=== PATIENT | female | born 1965 | race African-American/Black ===

== ENCOUNTER → 2016-04-07 | Emergency (ER) | payer MEDICAID, OTHER ==
[~2016-04-07] VITALS: Ht 167.6 cm; Wt 97.5 kg
[~2016-04-07] MED LIST: AMOXICILLIN500 MG ORAL; ANTIVERT25 MG ORAL; AUGMENTIN TAB875 MG ORAL; BIRTH CONTROL; CHLORPHENIRAMINE4 M1 PO; CORTISPORIN EAR10 ML OTIC; FLAGYL500 MG PO; FLOXIN OTIC10 DROP OT; KEFLEX500 MG ORAL; KENALOG 0.1% CR15 GM APPLIC; KENALOG 0.1% CR15 GM TOPIC; KENALOG 0.5% CR15 GM APPLIC; METROGEL-VAGINA70 G1 VAGIN; METRONIDAZOLE500 MG ORAL; METRONIDAZOLE500 MG PO; NKM; PREDNISONE50 MG ORAL; PROMETH-CODEIN 65 ML PO; TRIAMCINOLONE A15 G1 TP; VIBRAMYCIN100 MG PO
[2016-04-07 07:50] VITALS: BP 157/94
--- NOTE | 2016-04-07 08:02 | Emergency Room Report ---
History of Present Illness General Chief Complaint: Flu Like Symptoms Source: Patient Present Illness HPI The patient presents with 4 days of upper respiratory symptoms. She's had congestion, sneezing, sore throat, ear pain. She has a slight cough also. It' s nonproductive. She has a slight headache also. She's been taking over-the- counter medications. He been helping somewhat. She denies a flu shot this year. She denies any nausea vomiting diarrhea. She has no dysuria also. There 's been purulent material from her nose. 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 Social History: Denies: smoking Social History Narrative Brought by her daughter - works Home [employer] Last Menstrual Period: 03/20/16 Now: No Reviewed Nursing Documentation: PMH: Agreed, PSxH: Agreed Nursing Documentation-PMH Past Medical History: No Stated History Hx Cardiac Problems: No - ECZEMA Review of Systems Constitutional: Reports: see HPI ENT: Reports: see HPI Respiratory: Reports: see HPI Gastrointestinal: Reports: see HPI Genitourinary: Reports: see HPI Musculoskeletal: Reports: see HPI Skin: Denies: rash Neurological: Reports: see HPI Physical Exam Vital Signs Date Time Temp Pulse Resp B/P Pulse Ox O2 Delivery O2 Flow Rate FiO2 04/07/16 07:47 98.4 74 20 157/94 98 Room Air Sp02 EP Interpretation: reviewed, normal General Appearance: well appearing, no apparent distress Head: normocephalic, atraumatic Eyes: bilateral eye PERRL, bilateral eye other ENT: hearing grossly normal, normal voice, TMs + canals normal, moist mucus membranes, pharyngeal erythema Neck: full range of motion, supple Respiratory: lungs clear, normal breath sounds, no respiratory distress, speaking full sentences Cardiovascular #1: regular rate, rhythm Cardiovascular #2: 2+ radial (L) Gastrointestinal: normal inspection, overweight Musculoskeletal: normal inspection, gait/station normal, normal range of motion , no calf tenderness Neurologic: alert - Grosssly normal neurologic exam, normal gait Psychiatric: mood/affect normal Skin: no rash Medical Decision Making Diagnostic Impression: Primary Impression: Sinusitis Qualified Codes: J01.90 - Acute sinusitis, unspecified ER Course The patient presents with upper respiratory symptoms. She did not receive a flu shot. We will be checking influenza swab. She will also be treated symptomatically at this time. She is nontoxic. Significant nasal congestion and discharge. Influenza negative. Patient stable for outpatient observation and treatment. (She had stated allergy to codiene, however then reports that she had gum swelling after tooth extraction while taking codiene.) Microbiology Date/Time Source Procedure Growth Status 04/07/16 08:00 Nose Influenza Types A,B Antigen (FLOR) - Final Complete Last Vital Signs Date Time Temp Pulse Resp B/P Pulse Ox O2 Delivery O2 Flow Rate FiO2 04/07/16 09:10 98.4 74 20 157/94 98 Room Air Status: improved Disposition: HOME, SELF-CARE Condition: Stable Scripts Chlorpheniramine Maleate (Chlorpheniramine Maleate) 4 Mg Tablet 4 MG PO Q6HR Y for congestion, #12 TAB Prov: Stevenson Delgadillo M.D. 04/07/16 Promethazine HCl/Codeine (Prometh-Codein 6.25-10 mg/5 ml) 5 Ml Syrup 5 ML PO Q6HR Y for For Cough, #60 ML Prov: Stevenson Delgadillo M.D. 04/07/16 Amoxicillin* (AMOXIL*) 500 Mg Capsule 500 MG ORAL EVERY 8 HOURS, #21 CAP Prov: Stevenson Delgadillo M.D. 04/07/16 Stevenson Delgadillo M.D. Apr 07, 2016 08:02
[2016-04-07 09:10] VITALS: BP 157/94
== END | disposition home or self-care (01) ==
LOC: EMR 08:08
DX: J32.9 Chronic sinusitis, unspecified (principal); R09.81 Nasal congestion; R06.7 Sneezing; H92.09 Otalgia, unspecified ear
CPT/HCPCS: 86710; 99282

== ENCOUNTER 2016-07-22 07:18 | Emergency (ER) | payer MEDICAID ==
[~2016-07-22] VITALS: Ht 167.6 cm; Wt 113.4 kg
[~2016-07-22 07:18] MED LIST changes: -METRONIDAZOLE500 MG ORAL
[2016-07-22] MEDS ORDERED: LR 1000ml 1,000 ML IV STA (07:44)
[2016-07-22 08:20] LABS: BASOPHILS % (AUTO) 1.2 % (0.0-2.0); EOSINOPHILS % (AUTO) 2.9 % (0.0-3.0); LYMPHOCYTES % (AUTO) 32.8 % (20.0-45.0); MEAN CORPUSCULAR HEMOGLOBIN 35.1 PG (27.0-31.0); MEAN CORPUSCULAR HGB CONC 32.2 G/DL (32.0-36.0); MEAN CORPUSCULAR VOLUME 109 FL (80-99); MEAN PLATELET VOLUME 8.1 FL (6.5-10.1); MONOCYTES % (AUTO) 4.7 % (1.0-10.0); NEUTROPHILS % (AUTO) 58.4 % (45.0-75.0); PLATELET COUNT 253 K/UL (150-450); RED BLOOD COUNT 3.49 M/UL (4.20-5.40); RED CELL DISTRIBUTION WIDTH 12.1 % (11.6-14.8); WHITE BLOOD COUNT 8.5 K/UL (4.8-10.8)
--- NOTE | 2016-07-22 08:20 | Emergency Room Report ---
History of Present Illness General Chief Complaint: Dizziness Source: Patient Present Illness HPI 50 YO F with 1 week of "dizziness." She actually means weakness. Denies room spinning, unsteadiness on her feet. By dizziness, means "Im tired all the time. " C/o lower abd and back pain as well. Didnt have period for 2 months, had heavy period last week. Denies chance of . Denies vaginal bleeding, dysuria, polyuria. Denies nausea/vomiting, diarrhea. Denies chest pain, SOB, headache. Allergies: Coded Allergies: No Known Allergies (Unverified , 04/07/16) Patient History Past Medical History: none Past Surgical History: other - Tubal ligation Pertinent Family History: none Social History: Denies: alcohol use, drug use, smoking Last Menstrual Period: last week Now: No Immunizations: UTD Reviewed Nursing Documentation: PMH: Agreed, PSxH: Agreed Nursing Documentation-PMH Past Medical History: No History, Except For Review of Systems All Other Systems: negative except mentioned in HPI Physical Exam Vital Signs Date Time Temp Pulse Resp B/P Pulse Ox O2 Delivery O2 Flow Rate FiO2 07/22/16 07:28 98.2 71 18 142/83 98 Room Air Sp02 EP Interpretation: reviewed, abnormal General Appearance: normal inspection, well appearing, no apparent distress, alert, GCS 15, non-toxic, obese Head: normocephalic, atraumatic Eyes: bilateral eye EOMI, bilateral eye PERRL ENT: normal ENT inspection, hearing grossly normal, normal voice Neck: normal inspection, full range of motion, supple, no bony tend Respiratory: normal inspection, lungs clear, normal breath sounds, no respiratory distress, no retraction, no wheezing Cardiovascular #1: regular rate, rhythm, no edema Gastrointestinal: normal inspection, normal bowel sounds, non tender, soft, no guarding, no hernia Genitourinary: no CVA tenderness Musculoskeletal: normal inspection, back normal, normal range of motion, Kit' s Sign negative Neurologic: normal inspection, alert, oriented x3, responsive, quality specialist III-XII nml as tested, motor strength/tone normal, speech normal Psychiatric: normal inspection, judgement/insight normal, mood/affect normal Skin: normal inspection, normal color, no rash Lymphatic: normal inspection Medical Decision Making Diagnostic Impression: Primary Impression: Weakness ER Course Labs: H&H stable. No leuks. UA + for trich. ECG is NSR. Troponin 0. Weakness - Unknown cause, possible bernardo-menopausal - H&H stable, unlikely fibroids Treated for Trich in ED. Rx for partner provided EKG Diagnostic Results Rate: normal Rhythm: NSR ST Segments: other Rhythm Strip Diag. Results EP Interpretation: yes Rate: 65 Rhythm: NSR, no PVC's, no ectopy Last Vital Signs Date Time Temp Pulse Resp B/P Pulse Ox O2 Delivery O2 Flow Rate FiO2 07/22/16 07:28 98.2 71 18 142/83 98 Room Air Status: improved Disposition: HOME, SELF-CARE Scripts Triamcinolone Acet (Triamcinolone Acetonide) 15 Gm Cream..g. 15 GM APPLIC TID for 30 Days, GM Prov: SOLOMON GODOY M.D. 07/22/16 Metronidazole* (FLAGYL*) 500 Mg Tablet 2000 MG ORAL ONCE, #4 TAB Prov: SOLOMON GODOY M.D. 07/22/16 Referrals: [facility]ERR[facility] (PCP) SOLOMON GODOY M.D. Jul 22, 2016 08:20
[2016-07-22 08:32] LABS: TROPONIN I < 0.30 ng/mL (<=0.30)
[2016-07-22 08:33] LABS: ALANINE AMINOTRANSFERASE 13 U/L (3-33); ALBUMIN/GLOBULIN RATIO 1.1 (1.0-2.7); ANION GAP 14 (5-15); ASPARTATE AMINO TRANSFERASE 26 U/L (5-40); CALCIUM 8.8 mg/dL (8.6-10.2); CARBON DIOXIDE 24 mEQ/L (20-30); CHLORIDE 96 mEQ/L (98-107); CREATININE 0.9 mg/dL (0.5-0.9); GLOMERULAR FILTRATION RATE > 60 mL/min (>60); HEMOLYSIS 146; POTASSIUM 5.1 mEQ/L (3.4-4.9); SODIUM 134 mEQ/L (135-145); TOTAL PROTEIN 7.4 g/dL (6.6-8.7)
[2016-07-22 08:44] LABS: CKMB < 1.5 ng/mL (< 3.8)
[2016-07-22 08:52] VITALS: BP 126/71
[2016-07-22 09:12] LABS: APPEARANCE,URINE SLIGHTLY CLOUDY; KETONES,URINE NEGATIVE (NEGATIVE); LEUKOCYTE ESTERASE ,URINE 3+ (NEGATIVE); NITRITE,URINE NEGATIVE (NEGATIVE); PH,URINE 5 (4.5-8.0); PROTEIN,URINE 1+ (NEGATIVE); UROBILINOGEN,URINE NORMAL MG/DL (0.0-1.0)
[2016-07-22 09:27] LABS: BACTERIA,URINE FEW /HPF; SQUAMOUS EPITHELIAL CELL,UR MODERATE /LPF (NONE/OCC); TRICHOMONAS,URINE FEW /HPF
[2016-07-22] MEDS ORDERED: METRONIDAZOLE500 MG ORAL (10:23)
[2016-07-22] MEDS ORDERED: metroNIDAZOLE 500mg tab ORAL ONE (10:30)
[2016-07-22] MEDS ORDERED: KENALOG 0.5% CR15 GM APPLIC (10:48)
[2016-07-22 10:54] VITALS: BP 144/82
--- NOTE | 2016-07-23 18:36 | Cardiology Report ---
APPROVED REPORT EKG Measurement Heart [id number] Normal sinus rhythm Possible Left atrial enlargement Septal infarct, age undetermined Abnormal ECG
== END 2016-07-22 10:56 | disposition home or self-care (01) ==
LOC: EMR 08:04
DX: R53.1 Weakness (principal)
CPT/HCPCS: 36415; 80053; 81003; 81025; 82550; 82553; 84484; 85025; 93005; 96374; 99284; J7120

== ENCOUNTER 2016-12-05 05:25 | Emergency (ER) | payer MEDICAID ==
[~2016-12-05] VITALS: Ht 167.6 cm; Wt 104.3 kg
[~2016-12-05 05:25] MED LIST changes: +METRONIDAZOLE500 MG ORAL
[2016-12-05 06:00] VITALS: BP 126/68
--- NOTE | 2016-12-05 06:11 | Emergency Room Report ---
History of Present Illness General Chief Complaint: Female Urogenital Problems Source: Patient, Medical Record Present Illness HPI Is a 51-year-old female with no significant past medical history. She's been here numerous times for vaginal discharge and has trichomonal infection. She will be treated and does not know if her partner was also treated. She has the same partner since then. She presents with chief complaint of his discharge his been ongoing for last for 5 days. Initially treated herself with one-day Monistat and it did get better. Now back to having discharge. Discharge is yellowish. Itching. No urinary frequency. No hematuria. Allergies: Coded Allergies: No Known Allergies (Unverified , 04/07/16) Patient History Past Medical History: see triage record, old chart reviewed Past Surgical History: other Pertinent Family History: none Social History: Denies: smoking Last Menstrual Period: 11/22/16 Now: No Immunizations: other Reviewed Nursing Documentation: PMH: Agreed, PSxH: Agreed Review of Systems Eye: Denies: eye pain, blurred vision ENT: Denies: ear pain, nose congestion, throat swelling Respiratory: Denies: cough, shortness of breath Cardiovascular: Denies: chest pain, palpitations Gastrointestinal: Denies: abdominal pain, diarrhea, nausea, vomiting Genitourinary: Reports: discharge Musculoskeletal: Denies: back pain, joint pain Skin: Denies: rash Neurological: Denies: headache, numbness Endocrine: Denies: increased thirst, increased urine Hematologic/Lymphatic: Denies: easy bruising All Other Systems: negative except mentioned in HPI Physical Exam Vital Signs Date Time Temp Pulse Resp B/P (MAP) Pulse Ox O2 Delivery O2 Flow Rate FiO2 12/05/16 05:41 97.9 72 18 147/87 98 Room Air vitals normal Sp02 EP Interpretation: reviewed, normal General Appearance: well appearing, no apparent distress, alert, obese Head: normocephalic, atraumatic Eyes: bilateral eye PERRL, bilateral eye EOMI ENT: hearing grossly normal, normal pharynx Neck: full range of motion, supple, no meningismus Respiratory: chest non-tender, lungs clear, normal breath sounds Cardiovascular #1: regular rate, rhythm, no murmur Gastrointestinal: normal bowel sounds, non tender, no mass, no organomegaly, no bruit, non-distended Genitourinary: other - Pelvic exam done with female nurse grab jack worker. There is yellowish discharge. No cervical motion tenderness. No adnexal tenderness. External exam normal. Musculoskeletal: back normal, gait/station normal, normal range of motion Neurologic: alert, oriented x3 Psychiatric: mood/affect normal Skin: warm/dry Medical Decision Making Diagnostic Impression: Primary Impression: Bacterial vaginosis ER Course Patient presents with vaginal discharge consistent of bacterial vaginosis. No evidence of Trichomonas. We'll discharge home. Last Vital Signs Date Time Temp Pulse Resp B/P (MAP) Pulse Ox O2 Delivery O2 Flow Rate FiO2 12/05/16 05:41 97.9 72 18 147/87 98 Room Air Status: improved Disposition: HOME, SELF-CARE Scripts Metronidazole* (FLAGYL*) 500 Mg Tablet 500 MG ORAL BID, #14 TAB Prov: BETH MYLES M.D. 12/05/16 Referrals: [facility],REFERRING (PCP) Additional Instructions: Followup with your DrElan in 7 days. For alcohol with your antibiotics. Return if symptom worsen. BETH MYLES M.D. Dec 05, 2016 06:11
[2016-12-05 06:13] LABS: APPEARANCE,URINE CLEAR; KETONES,URINE NEGATIVE (NEGATIVE); LEUKOCYTE ESTERASE ,URINE 3+ (NEGATIVE); NITRITE,URINE NEGATIVE (NEGATIVE); PH,URINE 5 (4.5-8.0); PROTEIN,URINE 1+ (NEGATIVE); UROBILINOGEN,URINE NORMAL MG/DL (0.0-1.0)
[2016-12-05] MEDS ORDERED: METRONIDAZOLE500 MG ORAL (06:23)
[2016-12-05 06:25] VITALS: BP 130/71
[2016-12-05 06:30] VITALS: BP 130/71
[2016-12-05 06:35] LABS: BACTERIA,URINE MODERATE /HPF; SQUAMOUS EPITHELIAL CELL,UR MODERATE /LPF (NONE/OCC); WBC,URINE 40-60 /HPF (0 - 2)
== END 2016-12-05 06:30 | disposition home or self-care (01) ==
LOC: EMR 05:40
DX: N76.0 Acute vaginitis (principal); N89.8 Other specified noninflammatory disorders of vagina
CPT/HCPCS: 81003; 87086; 87181; 87210; 99283

== ENCOUNTER 2017-07-10 18:52 | Emergency (ER) | payer MEDICAID ==
[~2017-07-10] VITALS: Ht 167.6 cm; Wt 122.5 kg
[2017-07-10 19:25] VITALS: BP 120/74
[2017-07-10 19:30] VITALS: BP 130/85
[2017-07-10 19:35] VITALS: BP 134/82
--- NOTE | 2017-07-10 19:56 | Emergency Room Report ---
History of Present Illness General Chief Complaint: Chest Pain Source: Patient, Medical Record Present Illness HPI Patient's 51-year-old female presented after increased chest discomfort. Patient reported having sharp pain to the left side of her chest. This resolved spontaneously. She reported having eaten a burrito with spicy sauce immediately prior to having onset of pain. She denied any vomiting. She denies any shortness of breath. She reports having some itching to the right middle finger. She states she has prior history of eczema Allergies: Coded Allergies: No Known Allergies (Unverified , 04/07/16) Patient History Past Medical History: see triage record Last Menstrual Period: 07/05/17 Reviewed Nursing Documentation: PMH: Agreed; PSxH: Agreed Nursing Documentation-PMH Past Medical History: No History, Except For Review of Systems All Other Systems: negative except mentioned in HPI Physical Exam Vital Signs Date Time Temp Pulse Resp B/P (MAP) Pulse Ox O2 Delivery O2 Flow Rate FiO2 07/10/17 18:55 98.5 81 18 127/79 97 Room Air 98.4 Sp02 EP Interpretation: reviewed, normal General Appearance: normal inspection, well appearing, no apparent distress, alert, GCS 15 Head: atraumatic ENT: normal ENT inspection, hearing grossly normal, normal voice Neck: normal inspection, full range of motion, supple, no bony tend Respiratory: normal inspection, lungs clear, normal breath sounds, no respiratory distress, no retraction, no wheezing Cardiovascular #1: regular rate, rhythm, no edema Gastrointestinal: normal inspection, normal bowel sounds, non tender, soft, no guarding, no hernia Genitourinary: no CVA tenderness Musculoskeletal: normal inspection, back normal, normal range of motion Neurologic: normal inspection, alert, oriented x3, responsive, tent assembler III-XII nml as tested, speech normal Psychiatric: normal inspection, judgement/insight normal, mood/affect normal Skin: normal inspection, normal color, no rash Medical Decision Making Diagnostic Impression: Primary Impression: Eczematous dermatitis Additional Impression: GERD (gastroesophageal reflux disease) ER Course Patient presented for chest pain.Differential diagnosis included but was not limited to acute coronary syndrome, pulmonary embolism, pneumonia, aortic dissection, shingles, pneumothorax, aortic dissection, esophageal rupture, pericarditis. Because of complexity of patient's case laboratory testing and imaging studies were ordered. A studies showed mild elevation of the BNP. EKG showed no acute ST changes. The patient was offered admission for further evaluation and treatment. She declined. The patient symptoms appear somewhat related to indigestion however the patient was advised to have outpatient cardiology workup. The patient was advised to return if she began having worsening difficulty breathing increased chest pain or other concerns. Labs Test 07/10/17 19:20 White Blood Count 7.8 K/UL (4.8-10.8) Red Blood Count 3.46 M/UL (4.20-5.40) Hemoglobin 11.7 G/DL (12.0-16.0) Hematocrit 36.2 % (37.0-47.0) Mean Corpuscular Volume 105 FL (80-99) Mean Corpuscular Hemoglobin 33.9 PG (27.0-31.0) Mean Corpuscular Hemoglobin Concent 32.4 G/DL (32.0-36.0) Red Cell Distribution Width 11.5 % (11.6-14.8) Platelet Count 224 K/UL (150-450) Mean Platelet Volume 8.5 FL (6.5-10.1) Neutrophils (%) (Auto) 43.0 % (45.0-75.0) Lymphocytes (%) (Auto) 46.0 % (20.0-45.0) Monocytes (%) (Auto) 8.1 % (1.0-10.0) Eosinophils (%) (Auto) 1.6 % (0.0-3.0) Basophils (%) (Auto) 1.3 % (0.0-2.0) Sodium Level 138 MMOL/L (136-145) Potassium Level 3.5 MMOL/L (3.5-5.1) Chloride Level 104 MMOL/L (98-107) Carbon Dioxide Level 30 MMOL/L (21-32) Anion Gap 4 mmol/L (5-15) Blood Urea Nitrogen 9 mg/dL (7-18) Creatinine 1.1 MG/DL (0.55-1.30) Estimat Glomerular Filtration Rate > 60 mL/min (>60) Glucose Level 109 MG/DL (74-106) Calcium Level 8.3 MG/DL (8.5-10.1) Total Bilirubin 0.2 MG/DL (0.2-1.0) Aspartate Amino Transf (AST/SGOT) 20 U/L (15-37) Alanine Aminotransferase (ALT/SGPT) 23 U/L (12-78) Alkaline Phosphatase 73 U/L (46-116) Total Creatine Kinase 146 U/L (26-308) Creatine Kinase MB 0.9 NG/ML (0.0-3.6) Creatine Kinase MB Relative Index 0.6 Troponin I 0.000 ng/mL (0.000-0.056) Pro-B-Type Natriuretic Peptide 197 pg/mL (0-125) Total Protein 7.2 G/DL (6.4-8.2) Albumin 3.3 G/DL (3.4-5.0) Globulin 3.9 g/dL Albumin/Globulin Ratio 0.8 (1.0-2.7) Lipase 134 U/L (73-393) Last Vital Signs Date Time Temp Pulse Resp B/P (MAP) Pulse Ox O2 Delivery O2 Flow Rate FiO2 07/10/17 19:35 84 134/82 07/10/17 19:05 18 Room Air 07/10/17 18:55 98.5 97 98.4 Status: improved Disposition: HOME, SELF-CARE Condition: Stable Scripts Omeprazole (OMEPRAZOLE) 20 Mg Capsule. 20 MG ORAL DAILY, #30 CAP Prov: Torin Coleman 07/10/17 Torin Coleman Jul 10, 2017 19:56
[2017-07-10 20:07] LABS: ANION GAP 4 mmol/L (5-15); BLOOD UREA NITROGEN 9 mg/dL (7-18); CALCIUM 8.3 MG/DL (8.5-10.1); CARBON DIOXIDE 30 MMOL/L (21-32); CHLORIDE 104 MMOL/L (98-107); CREATININE 1.1 MG/DL (0.55-1.30); POTASSIUM 3.5 MMOL/L (3.5-5.1); SODIUM 138 MMOL/L (136-145)
[2017-07-10 20:15] LABS: BASOPHILS % (AUTO) 1.3 % (0.0-2.0); EOSINOPHILS % (AUTO) 1.6 % (0.0-3.0); HEMATOCRIT 36.2 % (37.0-47.0); HEMOGLOBIN 11.7 G/DL (12.0-16.0); MEAN CORPUSCULAR VOLUME 105 FL (80-99); MONOCYTES % (AUTO) 8.1 % (1.0-10.0); PLATELET COUNT 224 K/UL (150-450); RED BLOOD COUNT 3.46 M/UL (4.20-5.40); RED CELL DISTRIBUTION WIDTH 11.5 % (11.6-14.8); WHITE BLOOD COUNT 7.8 K/UL (4.8-10.8)
[2017-07-10 20:19] LABS: ALANINE AMINOTRANSFERASE 23 U/L (12-78); ALBUMIN 3.3 G/DL (3.4-5.0); ALBUMIN/GLOBULIN RATIO 0.8 (1.0-2.7); ALKALINE PHOSPHATASE 73 U/L (46-116); ASPARTATE AMINO TRANSFERASE 20 U/L (15-37); BILIRUBIN,TOTAL 0.2 MG/DL (0.2-1.0); CKMB 0.9 NG/ML (0.0-3.6); CREATINE KINASE 146 U/L (26-308)
[2017-07-10] MEDS ORDERED: OMEPRAZOLE20 M2 ORAL (20:29)
[2017-07-10 20:40] VITALS: BP 123/72
[2017-07-10 20:45] VITALS: BP 123/72
--- NOTE | 2017-07-11 09:43 | Diagnostic Imaging Report ---
Indication: Dyspnea Comparison: 10/07/2008 A single view chest radiograph was obtained. Findings: Cardiomediastinal appearance is within normal limits for age. Pulmonary vascularity is appropriate. The diaphragmatic contour is smooth and costophrenic angles are sharp. No pleural effusions are identified. The bones are unremarkable. Impression: No acute findings
--- NOTE | 2017-07-12 17:29 | Cardiology Report ---
APPROVED REPORT EKG Measurement Heart [id number] [place] [id number] Normal sinus rhythm Septal infarct, age undetermined Abnormal ECG
== END 2017-07-10 20:45 | disposition home or self-care (01) ==
LOC: EMR 20:01
DX: L30.9 Dermatitis, unspecified (principal); K21.9 Gastro-esophageal reflux disease without esophagitis
CPT/HCPCS: 36415; 71045; 80053; 82550; 82553; 83690; 83880; 84484; 85025; 93005; 99283

== ENCOUNTER 2018-09-25 17:35 | Emergency (ER) | payer MEDICAID ==
[~2018-09-25] VITALS: Ht 167.6 cm; Wt 104.3 kg
[~2018-09-25 17:35] MED LIST changes: +OMEPRAZOLE20 M2 ORAL
[2018-09-25 17:50] VITALS: BP 141/85
--- NOTE | 2018-09-25 17:50 | NUR ---
ED Nurse Note: Pt went to eye doctor this morning and was told her "BP was high", systolic was in the 150s. BP 141/85 upon arrival. This morning, pt felt GRAY and dizziness but no symptom at this time. AOx4, VSS gustavo. Will cont to monitor.
[2018-09-25] MEDS ORDERED: Tetracaine 0.5% Opth 4ml Soln LEFT EYE ONE (18:00)
[2018-09-25] MEDS ORDERED: HYDROCHLOROTHIA25 MG ORAL (18:24)
[2018-09-25 18:34] VITALS: BP 140/83
[2018-09-25 18:35] VITALS: BP 141/85
--- NOTE | 2018-09-25 18:35 | NUR ---
ER DISCHARGE NOTE: Patient is cleared to be discharged per ERMD, pt is aox4, on room air, with stable vital signs. pt was given dc and prescription instructions, pt was able to verbalize understanding, pt id band removed. pt is able to ambulate with steady gait. pt took all belongings.
--- NOTE | 2018-09-25 18:43 | Emergency Room Report ---
History of Present Illness General Chief Complaint: Hypertension Source: Patient Present Illness HPI Patient is a 53-year-old female who presented after being told that her blood pressure was elevated at optometry office. Patient denies any current symptoms. She reports having some retinal changes diagnosed by marsh buggy operator. Patient was advised to recheck with the marsh buggy operator in 3 to 4 days. She had been told that she had high blood pressure and presented the emergency department for evaluation.Patient denies any chest pain or shortness of breath. She denies feeling weak or dizzy. She denies any headache.She reports having some problems with near vision which she has recently been evaluated with her eye doctor. Allergies: Coded Allergies: No Known Allergies (Unverified , 04/07/16) Patient History Past Medical History: see triage record Now: No Reviewed Nursing Documentation: PMH: Agreed; PSxH: Agreed Nursing Documentation-PMH Past Medical History: No History, Except For Review of Systems All Other Systems: negative except mentioned in HPI Physical Exam Vital Signs Date Time Temp Pulse Resp B/P (MAP) Pulse Ox O2 Delivery O2 Flow Rate FiO2 09/25/18 17:39 98.4 79 20 141/85 (103) 95 Room Air General Appearance: well appearing, no apparent distress, alert, GCS 15, obese Head: normocephalic, atraumatic ENT: hearing grossly normal, normal voice Neck: full range of motion, supple Respiratory: lungs clear, no rhonchi, no respiratory distress, speaking full sentences Cardiovascular #1: normal inspection, no edema Gastrointestinal: normal inspection Musculoskeletal: normal inspection, no calf tenderness Neurologic: normal inspection, alert, oriented x3, responsive, assistant III-XII nml as tested, normal gait Psychiatric: mood/affect normal Skin: no rash Medical Decision Making Diagnostic Impression: Primary Impression: Hypertension ER Course Patient presented for hypertension. Differential diagnosis include was not limited to anxiety induced hypertension, hypertensive urgency, acute angle- closure glaucoma among others. Patient has a benign exam and does not appear to require any further imaging or laboratory testing at this time. Patient's blood pressure was noted to be adequately controlled and was noted to be normal after patient was in the emergency department and somewhat relaxed. Patient appears to have some elevation of blood pressure related and nervousness. Patient denies any current cyst concerning signs or symptoms. Patient was advised to follow-up with her marsh buggy operator for further medicate medical management of her chronic vision condition as well as initiation of glaucoma medications if indicated.Patient was given a prescription for hydrochlorothiazide and to take only if her blood pressure was noted to be persistently elevated on multiple checks. Last Vital Signs Date Time Temp Pulse Resp B/P (MAP) Pulse Ox O2 Delivery O2 Flow Rate FiO2 09/25/18 18:35 98.4 68 20 141/85 99 Room Air Status: improved Disposition: HOME, SELF-CARE Condition: Stable Scripts Hydrochlorothiazide* (HYDROCHLOROTHIAZIDE*) 25 Mg Tablet 25 MG ORAL DAILY, #30 TAB Prov: Torin Coleman MD 09/25/18 Referrals: [facility]/,REFERRING (PCP) Patient Instructions: Glaucoma, [id number], Hypertension Torin Coleman MD Sep 25, 2018 18:43
== END 2018-09-25 18:35 | disposition home or self-care (01) ==
LOC: EMR 18:07
DX: I10 Essential (primary) hypertension (principal)
CPT/HCPCS: 99282

== ENCOUNTER 2018-11-27 17:42 | Emergency (ER) | payer MEDICAID ==
[~2018-11-27] VITALS: Ht 162.6 cm; Wt 120.2 kg
[~2018-11-27 17:42] MED LIST changes: +HYDROCHLOROTHIA25 MG ORAL
[2018-11-27] MEDS ORDERED: LISINOPRIL20 MG ORAL (17:47)
[2018-11-27 17:50] VITALS: BP 143/89
--- NOTE | 2018-11-27 17:57 | NUR ---
ED Nurse Note:pt. came with right wrist pain after pulling pt. yesterday at work
--- NOTE | 2018-11-27 18:27 | Emergency Room Report ---
History of Present Illness General Chief Complaint: Upper Extremity Injury Source: Medical Record Present Illness HPI 53-year-old female presents to the emergency department complaining of 8 out of 10 severity localized pain to the right wrist with swelling and tenderness upon attempts to use her right hand. Patient is right-hand dominant. 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 She denies specific trauma or fall otherwise. Denies numbness tingling or loss of sensation or gross motor movements of the extremities, incontinence of bowel or bladder. Denies CP, Palpitations, LOC, AMS, dizziness, Changes in Vision, weakness or a sudden severe headache. Allergies: Coded Allergies: No Known Allergies (Unverified , 04/07/16) Patient History Past Medical History: see triage record Past Surgical History: none Pertinent Family History: none Last Menstrual Period: menopause Now: No Reviewed Nursing Documentation: PMH: Agreed; PSxH: Agreed Nursing Documentation-PMH Past Medical History: No History, Except For Hx Hypertension: Yes Review of Systems All Other Systems: negative except mentioned in HPI Physical Exam Vital Signs Date Time Temp Pulse Resp B/P (MAP) Pulse Ox O2 Delivery O2 Flow Rate FiO2 11/27/18 17:44 98.4 74 18 143/89 (107) 95 Room Air Sp02 EP Interpretation: reviewed, normal General Appearance: no apparent distress, alert, GCS 15, non-toxic Head: normocephalic, atraumatic Eyes: bilateral eye normal inspection, bilateral eye PERRL ENT: hearing grossly normal, normal voice Neck: full range of motion Respiratory: lungs clear, normal breath sounds, speaking full sentences Cardiovascular #1: regular rate, rhythm, normal capillary refill Cardiovascular #2: 2+ radial (R), 2+ radial (L) Musculoskeletal: gait/station normal, normal range of motion, tender - lateral ttp along ulna, pain with ROM testing, nvi, mild swelling noted. Neurologic: alert, oriented x3, responsive, motor strength/tone normal, sensory intact, speech normal, grossly normal Psychiatric: judgement/insight normal Skin: other - no bruises Medical Decision Making PA Attestation Dr. Coleman is my supervising Physician whom patient management has been discussed with. Diagnostic Impression: Primary Impression: Right wrist sprain Qualified Codes: S63.501A - Unspecified sprain of right wrist, initial encounter ER Course 53-year-old female presents to the emergency department complaining of 8 out of 10 severity localized pain to the right wrist with swelling and tenderness upon attempts to use her right hand. Patient is right-hand dominant. 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 She denies specific trauma or fall otherwise. Denies numbness tingling or loss of sensation or gross motor movements of the extremities, incontinence of bowel or bladder. Denies CP, Palpitations, LOC, AMS, dizziness, Changes in Vision, weakness or a sudden severe headache. Ddx considered but are not limited to Fracture, dislocation, contusion, Sprain/ Strain/Spasm Vital signs: are WNL, pt. is afebrile H&PE are most consistent with musculoskeletal injury will perform imaging to r/ o fractures/dislocations. ORDERS: - X-ray Right wrist 3 views - negative for fx, Dislocation, or significant soft tissue injury, per preliminary read in ED, and signed by DEE Angel , my supervising physician has reviewed, and agrees with my interpretation. ED INTERVENTIONS: -Right wrist Splint applied by water treatment technician. Pt. remains neurovascularly intact. DISCHARGE: At this time pt. is stable for d/c to home. Will provide printed patient care instructions, and any necessary prescriptions. Care plan and follow up instructions have been discussed with the patient prior to discharge. Other X-Ray Diagnostic Results Other X-Ray Diagnostic Results : X-Ray ordered: Right wrist # of Views/Limited Vs Complete: 3 View Indication: Pain EP Interpretation: Yes PA Xray: Interpretation reviewed, by supervising MD, and agrees with findings. Interpretation: no dislocation, no soft tissue swelling, no fractures Impression: No acute disease Electronically Signed by: Estrellita Angel PA-C Last Vital Signs Date Time Temp Pulse Resp B/P (MAP) Pulse Ox O2 Delivery O2 Flow Rate FiO2 11/27/18 17:50 98.4 78 18 143/89 95 Room Air Disposition: HOME, SELF-CARE Condition: Stable Scripts Ibuprofen* (MOTRIN*) 600 Mg Tablet 600 MG ORAL THREE TIMES A DAY, #30 TAB 0 Refills Prov: Estrellita Angel 11/27/18 Referrals: [facility],REFERRING (PCP) Estrellita Angel Nov 27, 2018 18:27
[2018-11-27] MEDS ORDERED: IBUPROFEN600 MG ORAL (18:42)
[2018-11-27] MEDS ORDERED: Naproxen 500mg tab ORAL ONE (18:45)
[2018-11-27 18:50] VITALS: BP 143/89
--- NOTE | 2018-11-27 18:50 | NUR ---
ER DISCHARGE NOTE:splint was applied on right wrist Patient is cleared to be discharged per ERMD, pt is aox4, on room air, with stable vital signs. pt was given dc and prescription instructions, pt was able to verbalize understanding, pt is able to ambulate with steady gait. pt took all belongings.
--- NOTE | 2018-11-27 19:25 | Diagnostic Imaging Report ---
EXAM: XR Right Wrist Complete, 3 or More Views CLINICAL HISTORY: PAIN TECHNIQUE: Frontal, lateral and oblique views of the right wrist. COMPARISON: No relevant prior studies available. FINDINGS: Bones/joints: No acute fracture. No dislocation. Soft tissues: Unremarkable. No radiopaque foreign body. IMPRESSION: No acute osseous findings.
== END 2018-11-27 18:50 | disposition home or self-care (01) ==
LOC: EMR 18:07
DX: S63.501A Unspecified sprain of right wrist, initial encounter (principal); I10 Essential (primary) hypertension; X50.9XXA Other and unspecified overexertion or strenuous movements or postures, initial encounter; Y93.F9 Activity, other caregiving; Y92.9 Unspecified place or not applicable; Y99.0 Civilian activity done for income or pay
CPT/HCPCS: 29125; 99283

== ENCOUNTER 2018-12-16 21:00 | Emergency (ER) | payer MEDICAID ==
[~2018-12-16] VITALS: Ht 167.6 cm; Wt 120.2 kg
[~2018-12-16 21:00] MED LIST changes: +IBUPROFEN600 MG ORAL; +LISINOPRIL20 MG ORAL
[2018-12-16] MEDS ORDERED: LISINOPRIL5 MG ORAL (21:13)
[2018-12-16 21:20] VITALS: BP 136/88
--- NOTE | 2018-12-16 21:20 | NUR ---
ED Nurse Note: Patient walked in to ER c/o headache and chest pain since today. AAOx4, VSS at this time, skin is warm to touch.
--- NOTE | 2018-12-16 21:25 | Emergency Room Report ---
History of Present Illness General Chief Complaint: Headache Source: Patient, Medical Record Present Illness HPI This is a 53-year-old female with a history of hypertension. She presents with complaint of headache and chest pain. Onset this morning. Pain is throbbing and diffuse in nature. No radiation. No focal deficit. Her headache is 8 out of 10. She said her feet was also has some swelling this morning. Better after she soaked it in Epson salt. Developed chest pain this afternoon. Pain is aching in nature. No nausea no vomiting. No diaphoresis. No exertional component. Has a slight congestion and runny nose. Denies any other complaint. Allergies: Coded Allergies: No Known Allergies (Unverified , 04/07/16) Patient History Past Medical History: see triage record, old chart reviewed, HTN Past Surgical History: none Pertinent Family History: none Social History: Denies: smoking Now: No Immunizations: other Reviewed Nursing Documentation: PMH: Agreed; PSxH: Agreed Nursing Documentation-PMH Past Medical History: No History, Except For Hx Hypertension: Yes Review of Systems Eye: Denies: eye pain, blurred vision ENT: Denies: ear pain, nose congestion, throat swelling Respiratory: Reports: cough; Denies: shortness of breath Cardiovascular: Reports: chest pain; Denies: palpitations Gastrointestinal: Denies: abdominal pain, diarrhea, nausea, vomiting Musculoskeletal: Denies: back pain, joint pain Skin: Denies: rash Neurological: Reports: headache; Denies: numbness Endocrine: Denies: increased thirst, increased urine Hematologic/Lymphatic: Denies: easy bruising All Other Systems: negative except mentioned in HPI Physical Exam Vital Signs Date Time Temp Pulse Resp B/P (MAP) Pulse Ox O2 Delivery O2 Flow Rate FiO2 12/16/18 21:10 98.1 66 18 136/88 (104) 98 Room Air Vitals unremarkable Sp02 EP Interpretation: reviewed, normal General Appearance: well appearing, no apparent distress, alert Head: normocephalic, atraumatic Eyes: bilateral eye PERRL, bilateral eye EOMI ENT: hearing grossly normal, normal pharynx Neck: full range of motion, supple, no meningismus Respiratory: chest non-tender, lungs clear, normal breath sounds Cardiovascular #1: regular rate, rhythm, no murmur Gastrointestinal: normal bowel sounds, non tender, no mass, no organomegaly, no bruit, non-distended Musculoskeletal: back normal, gait/station normal, normal range of motion Psychiatric: mood/affect normal Medical Decision Making Diagnostic Impression: Primary Impression: Headache Qualified Codes: G44.209 - Tension-type headache, unspecified, not intractable Additional Impression: Upper respiratory infection Qualified Codes: J06.9 - Acute upper respiratory infection, unspecified ER Course Patient presents with headache and probably beginning of a upper respiratory infection. Looks well. Most likely viral because of elevated lymphocyte count. Blood pressure stable. Will discharge home. Chest X-Ray Diagnostic Results Chest X-Ray Diagnostic Results : Chest X-Ray Ordered: Yes # of Views/Limited/Complete: 1 View Indication: Chest Pain EP Interpretation: Yes Interpretation: no consolidation, no effusion, no pneumothorax, no acute cardiopulmonary disease Impression: No acute disease Electronically Signed by: Zackery Santos MD CT/MRI/US Diagnostic Results CT/MRI/US Diagnostic Results : Imaging Test Ordered: CT head Impression Per radiologist neg Last Vital Signs Date Time Temp Pulse Resp B/P (MAP) Pulse Ox O2 Delivery O2 Flow Rate FiO2 12/16/18 21:10 98.1 66 18 136/88 (104) 98 Room Air Status: improved Disposition: HOME, SELF-CARE Condition: Stable Scripts Ibuprofen* (MOTRIN*) 600 Mg Tablet 600 MG ORAL THREE TIMES A DAY, #30 TAB 0 Refills Prov: Zackery Santos MD 12/16/18 Patient Instructions: Tension Headache Additional Instructions: Follow-up with your doctor in 7 days but return if symptoms worsen. Zackery Santos MD Dec 16, 2018 21:25
[2018-12-16] MEDS ORDERED: Ketorolac 30mg Inj IV ONE (21:30)
[2018-12-16 22:08] LABS: HEMATOCRIT 33.7 % (37.0-47.0); HEMOGLOBIN 12.2 G/DL (12.0-16.0); MEAN CORPUSCULAR VOLUME 95 FL (80-99); PLATELET COUNT 191 K/UL (150-450); RED BLOOD COUNT 3.56 M/UL (4.20-5.40); RED CELL DISTRIBUTION WIDTH 10.1 % (11.6-14.8); WHITE BLOOD COUNT 7.1 K/UL (4.8-10.8)
[2018-12-16 22:14] LABS: BILIRUBIN, URINE NEGATIVE (NEGATIVE); COLOR,URINE PALE YELLOW; GLUCOSE, URINE (UA) NEGATIVE (NEGATIVE); KETONES,URINE NEGATIVE (NEGATIVE); LEUKOCYTE ESTERASE ,URINE NEGATIVE (NEGATIVE); NITRITE,URINE NEGATIVE (NEGATIVE); PH,URINE 7 (4.5-8.0); PROTEIN,URINE NEGATIVE (NEGATIVE); UROBILINOGEN,URINE NORMAL MG/DL (0.0-1.0)
[2018-12-16 22:15] LABS: APPEARANCE,URINE CLEAR
[2018-12-16 22:16] LABS: ANION GAP 10 mmol/L (5-15); BLOOD UREA NITROGEN 5 mg/dL (7-18); CALCIUM 8.5 MG/DL (8.5-10.1); CARBON DIOXIDE 25 MMOL/L (21-32); CHLORIDE 104 MMOL/L (98-107); CREATININE 0.9 MG/DL (0.55-1.30); POTASSIUM 3.6 MMOL/L (3.5-5.1); SODIUM 138 MMOL/L (136-145)
[2018-12-16 22:20] LABS: ALANINE AMINOTRANSFERASE 17 U/L (12-78); ALBUMIN 3.6 G/DL (3.4-5.0); ALBUMIN/GLOBULIN RATIO 1.1 (1.0-2.7); ALKALINE PHOSPHATASE 76 U/L (46-116); ASPARTATE AMINO TRANSFERASE 22 U/L (15-37); BILIRUBIN,TOTAL 0.6 MG/DL (0.2-1.0)
--- NOTE | 2018-12-16 22:24 | Diagnostic Imaging Report ---
Indications: Headache Technique: Spiral acquisitions obtained through the brain. Angled axial and coronal 5 x 5 mm slices were reconstructed. Total dose length product 1368.54 mGycm. CTDI vol(s) 70.38 mGy. Dose reduction achieved using automated exposure control Comparison: None. Findings: No acute intracranial hemorrhage or edema, mass effect, nor midline shift. Normal curry-white differentiation. Normal size ventricles and extra-axial CSF spaces. Visualized orbits are unremarkable. The mastoids are clear. The visualized sinuses are clear. The calvarium is intact. Impression: Negative This agrees with the preliminary interpretation provided overnight by [facility] telerad[facility] service. The CT scanner at [facility] is accredited by the [employer] and the scans are performed using protocols designed to limit radiation exposure to as low as reasonably achievable to attain images of sufficient resolution adequate for diagnostic evaluation.
[2018-12-16] MEDS ORDERED: IBUPROFEN600 MG ORAL (23:14)
[2018-12-16 23:20] VITALS: BP 136/88
--- NOTE | 2018-12-16 23:58 | NUR ---
ER DISCHARGE NOTE: Patient is cleared to be discharged per ERMD, pt is aox4, on room air, with stable vital signs. pt was given dc and prescription instructions, pt was able to verbalize understanding, pt id band and iv site removed without complications. pt is able to ambulate with steady gait. pt took all belongings.
--- NOTE | 2018-12-17 12:28 | Diagnostic Imaging Report ---
Indication: Shortness of breath Technique: One view of the chest Comparison: 07/10/2017 Findings: The lungs and pleural spaces are clear. The heart size is upper limits of normal.. No significant interim change Impression: No acute process
--- NOTE | 2018-12-18 13:09 | Cardiology Report ---
APPROVED REPORT EKG Measurement Heart [id number] Normal sinus rhythm with sinus arrhythmia Cannot rule out Anterior infarct, age undetermined Abnormal ECG
== END 2018-12-16 23:20 | disposition home or self-care (01) ==
LOC: EMR 21:40
DX: G44.209 Tension-type headache, unspecified, not intractable (principal); J06.9 Acute upper respiratory infection, unspecified; R07.9 Chest pain, unspecified; I10 Essential (primary) hypertension
CPT/HCPCS: 36415; 70450; 71045; 80053; 81003; 84484; 85007; 85025; 93005; 96374; J1885; Z7502; 99284

== ENCOUNTER → 2019-03-04 | Emergency (ER) | payer MEDICAID ==
[~2019-03-04] VITALS: Ht 167.6 cm; Wt 117.9 kg
[~2019-03-04] MED LIST changes: +LISINOPRIL5 MG ORAL; +NITROFURANTOIN100 M2 ORAL; +PHENAZOPYRIDIN200 MG ORAL
[2019-03-04 17:53] VITALS: BP 149/95
--- NOTE | 2019-03-04 18:28 | NUR ---
ED Nurse Note: PT. AAOX4. AMBULATORY. PT. WALKED IN TO ER FROM HOME, PER PT. SHE HAS BEEN HAVING PAINFUL URINATION X 3 DAYS NOW
[2019-03-04 18:32] LABS: APPEARANCE,URINE CLOUDY; BILIRUBIN, URINE NEGATIVE (NEGATIVE); COLOR,URINE PALE YELLOW; GLUCOSE, URINE (UA) NEGATIVE (NEGATIVE); KETONES,URINE NEGATIVE (NEGATIVE); LEUKOCYTE ESTERASE ,URINE 3+ (NEGATIVE); NITRITE,URINE NEGATIVE (NEGATIVE); PH,URINE 6.5 (4.5-8.0); PROTEIN,URINE 3+ (NEGATIVE); UROBILINOGEN,URINE NORMAL MG/DL (0.0-1.0)
--- NOTE | 2019-03-04 18:36 | Emergency Room Report ---
History of Present Illness General Chief Complaint: Female Urogenital Problems Source: Patient Present Illness HPI 53-year-old female with history of hypertension currently controlled on glaucoma currently controlled here complaining of 2 days of dysuria and urinary frequency. Denies hematuria, suprapubic pain, flank pain, nausea vomiting, fever and chills. Denies diffuse abdominal pain. Denies being sexually active or vaginal discharge. Patient is post menopause. Has not taking any medication for symptom relief. Patient sitting comfortably with stable vital signs. Allergies: Coded Allergies: No Known Allergies (Unverified , 04/07/16) Patient History Past Medical History: see triage record Past Surgical History: unable to obtain Pertinent Family History: none Now: No Immunizations: UTD Reviewed Nursing Documentation: PMH: Agreed; PSxH: Agreed Nursing Documentation-PMH Hx Hypertension: Yes Review of Systems All Other Systems: negative except mentioned in HPI Physical Exam Vital Signs Date Time Temp Pulse Resp B/P (MAP) Pulse Ox O2 Delivery O2 Flow Rate FiO2 03/04/19 17:53 98.4 77 19 149/95 99 Room Air Sp02 EP Interpretation: reviewed, normal General Appearance: no apparent distress, alert, GCS 15, non-toxic Head: normocephalic, atraumatic Eyes: bilateral eye normal inspection, bilateral eye PERRL ENT: hearing grossly normal, normal pharynx, no angioedema, normal voice Neck: full range of motion, supple/symm/no masses Respiratory: chest non-tender, lungs clear, normal breath sounds, no rhonchi, no retraction, no wheezing, speaking full sentences Cardiovascular #1: regular rate, rhythm, no edema, no murmur, normal capillary refill Gastrointestinal: normal bowel sounds, non tender, soft, non-distended, no guarding, no rebound Genitourinary: no CVA tenderness Musculoskeletal: back normal, decreased range of motion, normal range of motion Neurologic: alert, motor strength/tone normal, oriented x3, sensory intact, responsive, speech normal Psychiatric: judgement/insight normal, memory normal, mood/affect normal, no suicidal/homicidal ideation Skin: no rash Lymphatic: no adenopathy Medical Decision Making PA Attestation Diagnosis and treatment plans were reviewed and discussed with my supervising physician Dr. Gay Diagnostic Impression: Primary Impression: UTI (urinary tract infection) ER Course 53-year-old female with history of hypertension currently controlled on glaucoma currently controlled here complaining of 2 days of dysuria and urinary frequency. Denies hematuria, suprapubic pain, flank pain, nausea vomiting, fever and chills. Denies diffuse abdominal pain. Denies being sexually active or vaginal discharge. Patient is post menopause. Has not taking any medication for symptom relief. Patient sitting comfortably with stable vital signs. Ddx considered but are not limited to: UTI, pyelonephritis, urinary incontinence , prolapsed bladder Vital signs: are WNL, pt. is afebrile H&PE are most consistent with: Uncomplicated UTI ORDERS: UA, urine cx, Macrobid, Pyridium ED INTERVENTIONS: None required at this time. DISCHARGE: At this time pt. is stable for d/c to home. Will provide printed patient care instructions, and any necessary prescriptions. Care plan and follow up instructions have been discussed with the patient prior to discharge. Take medication as directed, follow-up with primary care provider, if worsening symptoms return to the emergency room Last Vital Signs Date Time Temp Pulse Resp B/P (MAP) Pulse Ox O2 Delivery O2 Flow Rate FiO2 03/04/19 17:53 98.4 77 19 149/95 (113) 99 Room Air Disposition: HOME, SELF-CARE Condition: Stable Scripts Phenazopyridine Hcl* (PYRIDIUM*) 200 Mg Tablet 200 MG ORAL THREE TIMES A DAY for 2 Days, #6 TAB 0 Refills Prov: Darell Mcdermott 03/04/19 Nitrofurantoin Monohyd/M-Cryst* (MACROBID 100 MG*) 100 Mg Capsule 100 MG ORAL EVERY 12 HOURS for 7 Days, #14 CAP Prov: Darell Mcdermott 03/04/19 Referrals: [facility],REFERRING (PCP) Patient Instructions: Urinary Tract Infection Additional Instructions: Take medication as directed, follow-up with your primary care provider if worsening symptoms return to the emergency room Darell Mcdermott Mar 04, 2019 18:36
== END | disposition home or self-care (01) ==
LOC: EMR 18:17
DX: N39.0 Urinary tract infection, site not specified (principal); I10 Essential (primary) hypertension
CPT/HCPCS: 81003; 87086; Z7502; 99283

== ENCOUNTER 2019-03-16 00:17 | Inpatient (IN) | payer MEDICAID ==
[2019-03-16] VITALS (14 sets, daily range): BP systolic 106–149; BP diastolic 74–94
[~2019-03-16] VITALS: Ht 167.6 cm; Wt 120.0 kg
--- NOTE | 2019-03-16 00:30 | NUR ---
ED Nurse Note: Walk-in patient with complaints of abdominal pain and sweating, x 1 week. Patient reports recent history of UTI, reports finishing antibiotic. patient sweats execessively at night x 2 nights after antibiotics. Pt accompanied by daughter. KYLIE SANCHEZ, on cardiac catheterization technician. Will continue to monitor. Addendum: 03/16/19 at 0108 by [email or web address] ED Nurse Note: Walk-in patient with complaints of abdominal pain and sweating, x 1 week. Patient reports recent history of UTI, reports finishing antibiotic. patient sweats execessively at night x 2 nights after antibiotics. Pt accompanied by daughter. DANO at bedside. KYLIE SANCHEZ, on cardiac catheterization technician. Will continue to monitor.
[2019-03-16] MEDS ORDERED: Ketorolac 30mg Inj IV ONE (00:45)
--- NOTE | 2019-03-16 00:49 | NUR ---
ED Nurse Note: IV line established on right hand with 20g saline lock. Blood drawn and sent to lab with urine. Line patent and intact.
[2019-03-16 01:05] LABS: BASOPHILS % (AUTO) 0.5 % (0.0-2.0); EOSINOPHILS % (AUTO) 0.3 % (0.0-3.0); HEMOGLOBIN 10.3 G/DL (12.0-16.0); LYMPHOCYTES % (AUTO) 26.6 % (20.0-45.0); MEAN CORPUSCULAR VOLUME 97 FL (80-99); MONOCYTES % (AUTO) 7.7 % (1.0-10.0); NEUTROPHILS % (AUTO) 64.9 % (45.0-75.0); PLATELET COUNT 289 K/UL (150-450); RED CELL DISTRIBUTION WIDTH 10.3 % (11.6-14.8); WHITE BLOOD COUNT 14.2 K/UL (4.8-10.8)
[2019-03-16 01:06] LABS: APPEARANCE,URINE CLEAR; BILIRUBIN, URINE NEGATIVE (NEGATIVE); GLUCOSE, URINE (UA) NEGATIVE (NEGATIVE); KETONES,URINE NEGATIVE (NEGATIVE); LEUKOCYTE ESTERASE ,URINE 1+ (NEGATIVE); NITRITE,URINE NEGATIVE (NEGATIVE); PH,URINE 6.5 (4.5-8.0); PROTEIN,URINE 1+ (NEGATIVE); UROBILINOGEN,URINE NORMAL MG/DL (0.0-1.0)
[2019-03-16 01:12] LABS: COLOR,URINE YELLOW
[2019-03-16 01:15] LABS: ANION GAP 7 mmol/L (5-15); BLOOD UREA NITROGEN 9 mg/dL (7-18); CALCIUM 8.9 MG/DL (8.5-10.1); CARBON DIOXIDE 27 MMOL/L (21-32); CHLORIDE 106 MMOL/L (98-107); CREATININE 1.1 MG/DL (0.55-1.30); SODIUM 140 MMOL/L (136-145)
[2019-03-16 01:22] LABS: ALANINE AMINOTRANSFERASE 24 U/L (12-78); ALBUMIN 3.2 G/DL (3.4-5.0); ALBUMIN/GLOBULIN RATIO 0.7 (1.0-2.7); ALKALINE PHOSPHATASE 72 U/L (46-116); ASPARTATE AMINO TRANSFERASE 17 U/L (15-37); BILIRUBIN,TOTAL 0.6 MG/DL (0.2-1.0)
[2019-03-16] MEDS ORDERED: Omnipaque-300 100ml vial INJ PRN (01:30)
--- NOTE | 2019-03-16 02:35 | NUR ---
ED Nurse Note: Patient down to CT with radiology.
--- NOTE | 2019-03-16 02:58 | NUR ---
ED Nurse Note: PATIENT BACK FROM CT. AMBULATES STEADY. DENIES DISCOMFORT PAIN OR SOB. ACCOMPANIED BY EDITING INTERNSHIP. PATIENT BACK IN BED WITH NO ACUTE DISTRESS. REATTACHED TO MONITOR. IV INTACT AND PATENT. PROVIDED PATIENT WITH WARM BLANKET. WILL CONTINUE TO MONITOR.
--- NOTE | 2019-03-16 03:15 | NUR ---
ED Nurse Note: type and cross collected and sent down to lab. Plan of care discussed with patient. Patient aware of pending admission.
--- NOTE | 2019-03-16 03:18 | Diagnostic Imaging Report ---
Clinical Indication: Abdominal pain for one day Technique: No oral contrast utilized, per emergency room physician request IV administration nonionic contrast. Venous phase spiral acquisition obtained through the abdomen and pelvis. Multiplanar reconstructions were generated. Total dose length product 1870 mGycm. CTDIvol(s) 31 mGy. Dose reduction achieved using automated exposure control Comparison: none Findings: The appendix is enlarged, measuring up to 16 mm in diameter, and there is fairly extensive surrounding periappendiceal fat stranding/inflammation. There are also enlarged adjacent lymph nodes. No discrete extraluminal gas or fluid. No evidence of colonic diverticulosis or diverticulitis. The distal esophagus, stomach, duodenum are unremarkable. A small amount of free fluid is seen in the pelvis The gallbladder is distended. No definite gallstones. The common bile duct is mildly dilated, measuring up to 8 mm in diameter. No focal liver lesions. The pancreas, spleen, adrenals, right kidney are unremarkable. Left kidney demonstrates subcentimeter low-attenuation lesions which are too small to characterize. The uterus and ovaries are unremarkable. No pelvic mass or adenopathy. The included lung bases are clear. The bones demonstrate mild degenerative spondylosis changes. Impression: Evidence of acute appendicitis Small amount of free pelvic fluid, likely related to the above Mildly dilated common bile duct, without evidence of downstream obstructive lesion. Correlate with liver function tests, consider MRCP to better characterize if clinically indicated Subcentimeter low-attenuation left renal lesions, too small to characterize, most likely benign simple cyst. No further follow-up necessary Degenerative spondylosis changes incidentally noted This agrees with the preliminary interpretation provided overnight by [facility] service. The CT scanner at [facility] is accredited by the [employer] and the scans are performed using protocols designed to limit radiation exposure to as low as reasonably achievable to attain images of sufficient resolution adequate for diagnostic evaluation.
[2019-03-16] MEDS ORDERED: Piperacillin/Tazobactam 3.375 GM in NS 110 ML IVPB ONE (03:30)
[2019-03-16 03:43] LABS: INR 0.9 (0.9-1.1)
[2019-03-16] MEDS ORDERED: Morphine Sulfate 4mg/ml Inj (IV USE ONLY) IVP PRN (04:00)
[2019-03-16] MEDS ORDERED: Ketorolac 30mg Inj IV PRN ×3 (04:00→12:00)
--- NOTE | 2019-03-16 04:00 | NUR ---
ED Nurse Note: Belongings list completed with patient.
--- NOTE | 2019-03-16 04:15 | NUR ---
TRANSFER TO FLOOR: Patient transferred to [facility] [id number] as ordered, per Renay ABRAMS . Report given to Oni MCKINNEY. Patient transferred to floor via wheelchair with all belongings. IV intact and patent. Belongings list completed with receiving nurse.
--- NOTE | 2019-03-16 04:20 | NUR ---
NURSE NOTES: Patient arrived to the unit on a wheelchair. Patient able to ambulate with steady gait. IV intact, dry, and patent on right hand. Skin intact. Belongings brought in by a daughter. Medication bottle brought in but will be sent home with the daughter. Medication reconciliation is done, confirmed with the patient. Patient a/a/o x 4, breathing unlabored on room air. Verbalized pain 0/10 at this time. Oriented to the room and the unit. Bed placed at the lowest with alarm, brake, and siderails up for safety. Call light placed within reach. Encouraged to use. Admission order given by Dr. Niño will be carried out as given. Will continue to monitor and provide care as ordered.
[2019-03-16] MEDS ORDERED: IBUPROFEN600 MG ORAL (04:44)
--- NOTE | 2019-03-16 05:43 | Emergency Room Report ---
History of Present Illness General Chief Complaint: Abdominal Pain Source: Patient Present Illness HPI 53-year-old female presents ED for evaluation. Complaining of abdominal pain. States she was seen here end of February and noted to have UTI. Was prescribed antibiotics. States that she completed the antibiotics and states her dysuria has resolved but states that she started developing some abdominal pain, chills. Pain is dull, 8 out of 10, nonradiating. Denies chest pain or shortness of breath. Notes nausea and vomiting. Notes reduced appetite. No other aggravating relieving factors. Denies any other associated symptoms Allergies: Coded Allergies: No Known Allergies (Unverified , 04/07/16) Patient History Past Medical History: HTN Past Surgical History: none Pertinent Family History: none Social History: Denies: smoking, alcohol use, drug use Last Menstrual Period: 2016 Now: No : 6 Para: 5 Immunizations: UTD Reviewed Nursing Documentation: PMH: Agreed; PSxH: Agreed Nursing Documentation-PMH Hx Hypertension: Yes Review of Systems All Other Systems: negative except mentioned in HPI Physical Exam Vital Signs Date Time Temp Pulse Resp B/P (MAP) Pulse Ox O2 Delivery O2 Flow Rate FiO2 03/16/19 00:24 97.5 81 18 95/65 (75) 96 Room Air Sp02 EP Interpretation: reviewed, normal General Appearance: no apparent distress, alert, GCS 15, non-toxic, obese Head: normocephalic, atraumatic Eyes: bilateral eye normal inspection, bilateral eye PERRL ENT: hearing grossly normal, normal pharynx, no angioedema, normal voice Neck: full range of motion, supple/symm/no masses Respiratory: chest non-tender, lungs clear, normal breath sounds, speaking full sentences Cardiovascular #1: regular rate, rhythm, no edema Cardiovascular #2: 2+ carotid (R), 2+ carotid (L), 2+ radial (R), 2+ radial (L) , 2+ dorsalis pedis (R), 2+ dorsalis pedis (L) Gastrointestinal: normal bowel sounds, soft, non-distended, no guarding, no rebound, tenderness Rectal: deferred Genitourinary: normal inspection, no CVA tenderness Musculoskeletal: back normal, normal range of motion, gait/station normal, non- tender Neurologic: alert, motor strength/tone normal, oriented x3, sensory intact, responsive, speech normal Psychiatric: judgement/insight normal, memory normal, mood/affect normal, no suicidal/homicidal ideation Reflexes: 3+ bicep (R), 3+ bicep (L), 3+ tricep (R), 3+ tricep (L), 3+ knee (R) , 3+ knee (L) Lymphatic: no adenopathy Medical Decision Making Diagnostic Impression: Primary Impression: Appendicitis Qualified Codes: K35.80 - Unspecified acute appendicitis ER Course Hospital Course 53-year-old F presents to ED with lower abd pain, nausea, chills Differential diagnoses include: Appendicitis, cholecystitis, small bowel obstruction Clinical course 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 electrolytes ok. UA unremarkable CT abdomen and pelvis - appendicits without perforation Antibiotics given. Case discussed with Dr. Godwin and he will consult. Case discussed with Dr. Niño and he agreed to accept the patient to his service for further care and support I feel this is a highly complex case requiring extensive working including EKG/ Rhythm strip, Xray/CT/US, Blood/urine lab work, repeat exams while in ED, and administration of strong opiates/narcotics for pain control, admission to hospital or close patient follow up. Diagnosis - appendicitis admitted in serious condition Labs Test 03/16/19 00:50 White Blood Count 14.2 K/UL (4.8-10.8) Red Blood Count 3.00 M/UL (4.20-5.40) Hemoglobin 10.3 G/DL (12.0-16.0) Hematocrit 29.0 % (37.0-47.0) Mean Corpuscular Volume 97 FL (80-99) Mean Corpuscular Hemoglobin 34.4 PG (27.0-31.0) Mean Corpuscular Hemoglobin Concent 35.5 G/DL (32.0-36.0) Red Cell Distribution Width 10.3 % (11.6-14.8) Platelet Count 289 K/UL (150-450) Mean Platelet Volume 6.1 FL (6.5-10.1) Neutrophils (%) (Auto) 64.9 % (45.0-75.0) Lymphocytes (%) (Auto) 26.6 % (20.0-45.0) Monocytes (%) (Auto) 7.7 % (1.0-10.0) Eosinophils (%) (Auto) 0.3 % (0.0-3.0) Basophils (%) (Auto) 0.5 % (0.0-2.0) Prothrombin Time 10.1 SEC (9.30-11.50) Prothromb Time International Ratio 0.9 (0.9-1.1) Activated Partial Thromboplast Time 30 SEC (23-33) Urine Color Yellow Urine Appearance Clear Urine pH 6.5 (4.5-8.0) Urine Specific [place] 1.015 (1.005-1.035) Urine Protein 1+ (NEGATIVE) Urine Glucose (UA) Negative (NEGATIVE) Urine Ketones Negative (NEGATIVE) Urine Blood Negative (NEGATIVE) Urine Nitrite Negative (NEGATIVE) Urine Bilirubin Negative (NEGATIVE) Urine Urobilinogen Normal MG/DL (0.0-1.0) Urine Leukocyte Esterase 1+ (NEGATIVE) Urine RBC 0-2 /HPF (0 - 2) Urine WBC 0-2 /HPF (0 - 2) Urine Squamous Epithelial Cells Few /LPF (NONE/OCC) Urine Bacteria None /HPF (NONE) Sodium Level 140 MMOL/L (136-145) Potassium Level 4.0 MMOL/L (3.5-5.1) Chloride Level 106 MMOL/L (98-107) Carbon Dioxide Level 27 MMOL/L (21-32) Anion Gap 7 mmol/L (5-15) Blood Urea Nitrogen 9 mg/dL (7-18) Creatinine 1.1 MG/DL (0.55-1.30) Estimat Glomerular Filtration Rate > 60 mL/min (>60) Glucose Level 112 MG/DL (74-106) Calcium Level 8.9 MG/DL (8.5-10.1) Total Bilirubin 0.6 MG/DL (0.2-1.0) Aspartate Amino Transf (AST/SGOT) 17 U/L (15-37) Alanine Aminotransferase (ALT/SGPT) 24 U/L (12-78) Alkaline Phosphatase 72 U/L (46-116) Total Protein 7.7 G/DL (6.4-8.2) Albumin 3.2 G/DL (3.4-5.0) Globulin 4.5 g/dL Albumin/Globulin Ratio 0.7 (1.0-2.7) CT/MRI/US Diagnostic Results CT/MRI/US Diagnostic Results : Imaging Test Ordered: CT A/P Impression CT ABDOMEN & PELVIS With Contrast: Distended appendix, measuring up to 1.2 cm, with periappendiceal fat stranding/ inflammatory changes suggesting acute appendicitis. Adjacent reactive lymphadenopathy. No free air. No bowel obstruction. No fluid collection. Surgical consult recommended. Distended gallbladder. Right upper quadrant ultrasound is recommended for further evaluation, if clinically indicated. Last Vital Signs Date Time Temp Pulse Resp B/P (MAP) Pulse Ox O2 Delivery O2 Flow Rate FiO2 03/16/19 04:28 Room Air 03/16/19 04:15 97.5 70 16 112/82 97 Status: improved Disposition: ADMITTED INPATIENT Condition: Serious Referrals: [facility],REFERRING (PCP) Jared Bullard MD Mar 16, 2019 05:43
--- NOTE | 2019-03-16 07:25 | NUR ---
NURSE NOTES: Report received from Minsu RN. Patient awake, alert and oriented x 4. Patient has no complaints or request at this time. Bed locked and in lowest position. Patient requested that bed not be alarmed, patient will call if she needs help. Patient has steady gate and able to ambulate. Call light and bedside table within reach. Will continue to follow plan of care.
--- NOTE | 2019-03-16 07:45 | NUR ---
HAND-OFF: Report given to FAYE Sood and FAYE Zamudio.
--- NOTE | 2019-03-16 09:04 | General Progress Note ---
Assessment/Plan Assessment/Plan: Assessment - Acute appendicitis - Anemia - Obesity Recommendations - NPO - IVF - Surgical evaluation - outpatient EGD/Colon once recovered from surgery Subjective Allergies: Coded Allergies: No Known Allergies (Unverified , 04/07/16) Objective Last 24 Hour Vital Signs Date Time Temp Pulse Resp B/P (MAP) Pulse Ox O2 Delivery O2 Flow Rate FiO2 03/16/19 04:28 Room Air 03/16/19 04:15 97.5 70 16 112/82 97 Room Air 03/16/19 04:00 97.5 70 16 112/82 97 Room Air 03/16/19 03:00 97.5 76 14 110/85 98 Room Air 03/16/19 01:32 97.5 03/16/19 01:12 73 18 Room Air 03/16/19 01:05 97.5 73 18 106/90 96 Room Air 03/16/19 00:24 97.5 81 18 95/65 (75) 96 Room Air Intake and Output 03/15/19 03/16/19 18:59 06:59 Intake Total 1000 ml Balance 1000 ml Intake IV Total 1000 ml # Voids 1 Laboratory Tests 03/16/19 00:50: White Blood Count 14.2H, Red Blood Count 3.00L, Hemoglobin 10.3L, Hematocrit 29.0L, Mean Corpuscular Volume 97, Mean Corpuscular Hemoglobin 34.4H, Mean Corpuscular Hemoglobin Concent 35.5, Red Cell Distribution Width 10.3L, Platelet Count 289, Mean Platelet Volume 6.1L, Neutrophils (%) (Auto) 64.9, Lymphocytes (%) (Auto) 26.6, Monocytes (%) (Auto) 7.7, Eosinophils (%) (Auto) 0.3, Basophils (%) (Auto) 0.5, Prothrombin Time 10.1, Prothromb Time International Ratio 0.9, Activated Partial Thromboplast Time 30, Urine Color Yellow, Urine Appearance Clear, Urine pH 6.5, Urine Specific [place] 1.015, Urine Protein 1+H, Urine Glucose (UA) Negative, Urine Ketones Negative, Urine Blood Negative, Urine Nitrite Negative, Urine Bilirubin Negative, Urine Urobilinogen Normal, Urine Leukocyte Esterase 1+H, Urine RBC 0-2, Urine WBC 0-2 , Urine Squamous Epithelial Cells Few, Urine Bacteria None, Sodium Level 140, Potassium Level 4.0, Chloride Level 106, Carbon Dioxide Level 27, Anion Gap 7, Blood Urea Nitrogen 9, Creatinine 1.1, Estimat Glomerular Filtration Rate > 60, Glucose Level 112H, Calcium Level 8.9, Total Bilirubin 0.6, Aspartate Amino Transf (AST/SGOT) 17, Alanine Aminotransferase (ALT/SGPT) 24, Alkaline Phosphatase 72, Total Protein 7.7, Albumin 3.2L, Globulin 4.5, Albumin/Globulin Ratio 0.7L Height (Feet): 5 Height (Inches): 6.00 Weight (Pounds): 264 Nas Macdonald MD Mar 16, 2019 09:04
--- NOTE | 2019-03-16 10:45 | NUR ---
NURSE NOTES: Received call from surgery stating that they would be coming to get the patient in the next 45 minutes. Looking for consent, test, and H&P. Contacted Doctor Godwin regarding consent and test. Contacted Doctor Niño regarding H&P. Waiting to here back from both physicians.
--- NOTE | 2019-03-16 11:06 | Diagnostic Imaging Report ---
Indication: Abdominal pain, distended abdomen, nausea, vomiting, elevated white blood cell count Technique: Ugalde-scale and duplex images of the upper abdomen were obtained. Graded compression images of the right lower quadrant Comparison: No comparison sonograms. Reference made to CT scan performed 6 hours earlier Findings: The appendix cannot be visualized, patient unable to tolerate compression the right lower quadrant. A prominent lymph node with normal architecture is demonstrated in the right inguinal region. Gallbladder demonstrate a large gallstone. No gallbladder wall thickening or pericholecystic fluid. Sonographic Causey's sign is negative. Common bile duct measures 5 mm in diameter. No intrahepatic biliary ductal dilatation. Liver demonstrates normal echogenicity, no focal abnormality. Portal vein and hepatic veins are patent. Pancreas is unremarkable. Spleen is unremarkable. Left kidney measures 11.8 cm in length. Right kidney measures 10.7 cm length. Both kidneys demonstrate normal echogenicity. There is suggestion of slight cortical thinning of both kidneys. There is no hydronephrosis. No focal abnormality . Non-aneurysmal abdominal aorta . Impression: Cholelithiasis, occult on recent CT scan. Negative for dilated bile ducts Enlarged appendix described on recent CT scan could not be visualized due to inability of patient to tolerate compression Slight renal cortical thinning
--- NOTE | 2019-03-16 11:15 | NUR ---
NURSE NOTES: Contacted by Doctor Godwin. Doctor stated that he would come to [facility] [place] at 1300 to speak with patient to hold procedure until then. In the mean time to obtain urine sample for test. Patient given specimen cup and educated on purpose of urine sample. Called Doctor Renay office and left message regarding H&P. Will continue to follow plan of care.
[2019-03-16] MEDS ORDERED: LR 1000ml 1,000 ML IVLG SCH (12:00)
[2019-03-16] MEDS ORDERED: fentaNYL 100 mcg/2 mL IV PRN (12:00)
[2019-03-16] MEDS ORDERED: HYDROcodone/Acetamin 5/325 tab ORAL PRN (12:00)
[2019-03-16] MEDS ORDERED: oxyCODONE HCL/Acetaminophen 5/325mg ORAL PRN (12:00)
[2019-03-16] MEDS ORDERED: Meperidine 50mg/ml Inj(FOR RIGORS ONLY) IVP PRN (12:00)
[2019-03-16] MEDS ORDERED: HYDROcodone/Acetamin 7.5/325 tab ORAL PRN (12:00)
[2019-03-16] MEDS ORDERED: LORazepam Inj 2mg/ml 1ml IV PRN (12:00)
[2019-03-16] MEDS ORDERED: Acetaminophen (Non formulary) 100 ML IV ONE (12:00)
[2019-03-16] MEDS ORDERED: Hydromorphone 0.5mg/0.5ml inj IVP PRN (12:00)
[2019-03-16] MEDS ORDERED: Midazolam 2mg/2ml Inj IVP PRN (12:00)
[2019-03-16] MEDS ORDERED: Labetalol 5mg/ml 20ml vial IV PRN (12:00)
[2019-03-16] MEDS ORDERED: Atropine Sulfate 0.4mg/ml inj IVP PRN (12:00)
[2019-03-16] MEDS ORDERED: DiphenhydrAMINE 50mg/ml Inj IVP PRN (12:00)
[2019-03-16] MEDS ORDERED: Metoclopramide 10mg/2ml Inj IVP PRN (12:00)
--- NOTE | 2019-03-16 12:08 | Anethesia Preoperative Eval ---
Anesthesia Pre-op PMH/ROS General Date of Evaluation: Mar 16, 2019 Time of Evaluation: 13:31 Anesthesiologist: Debby ASA Score: ASA 3 Mallampati Score Class I : Soft palate, uvula, fauces, pillars visible Class II: Soft palate, uvula, fauces visible Class III: Soft palate, base of uvula visible Class IV: Only hard plate visible Mallampati Classification: Class II Surgeon: Tato Diagnosis: Acute Appendicitis Surgical Procedure: Laparoscopic Appendectomy Anesthesia History: none Family History: no anesthesia problems Allergies: Coded Allergies: No Known Allergies (Unverified , 04/07/16) Medications: see eMAR Patient NPO?: Yes Past Medical History Cardiovascular: Reports: HTN Hematology/Immune: Reports: anemia Musculoskeletal/Integumentary: Reports: other - Exzema Other: obesity - BMI 44 PSxH Narrative: Fallopian Tube Removal Anesthesia Pre-op Phys. Exam Physician Exam Last Vital Signs Date Time Temp Pulse Resp B/P (MAP) Pulse Ox O2 Delivery O2 Flow Rate FiO2 03/16/19 09:00 Room Air 03/16/19 08:00 98.9 74 17 122/74 (90) 97 Constitutional: NAD Neurologic: CN 2-12 intact Cardiovascular: RRR Respiratory: CTA Gastrointestinal: S/NT/ND Airway Exam Mallampati Score: Class II MO: limited ROM: limited Teeth: missing, intact Anesthesia Pre-op A/P Labs Hematology Test 03/16/19 00:50 White Blood Count 14.2 K/UL (4.8-10.8) H Red Blood Count 3.00 M/UL (4.20-5.40) L Hemoglobin 10.3 G/DL (12.0-16.0) L Hematocrit 29.0 % (37.0-47.0) L Mean Corpuscular Volume 97 FL (80-99) Mean Corpuscular Hemoglobin 34.4 PG (27.0-31.0) H Mean Corpuscular Hemoglobin Concent 35.5 G/DL (32.0-36.0) Red Cell Distribution Width 10.3 % (11.6-14.8) L Platelet Count 289 K/UL (150-450) Mean Platelet Volume 6.1 FL (6.5-10.1) L Neutrophils (%) (Auto) 64.9 % (45.0-75.0) Lymphocytes (%) (Auto) 26.6 % (20.0-45.0) Monocytes (%) (Auto) 7.7 % (1.0-10.0) Eosinophils (%) (Auto) 0.3 % (0.0-3.0) Basophils (%) (Auto) 0.5 % (0.0-2.0) Coagulation Test 03/16/19 00:50 Prothrombin Time 10.1 SEC (9.30-11.50) Prothromb Time International Ratio 0.9 (0.9-1.1) Activated Partial Thromboplast Time 30 SEC (23-33) Chemistry Test 03/16/19 00:50 Sodium Level 140 MMOL/L (136-145) Potassium Level 4.0 MMOL/L (3.5-5.1) Chloride Level 106 MMOL/L (98-107) Carbon Dioxide Level 27 MMOL/L (21-32) Anion Gap 7 mmol/L (5-15) Blood Urea Nitrogen 9 mg/dL (7-18) Creatinine 1.1 MG/DL (0.55-1.30) Estimat Glomerular Filtration Rate > 60 mL/min (>60) Glucose Level 112 MG/DL (74-106) H Calcium Level 8.9 MG/DL (8.5-10.1) Total Bilirubin 0.6 MG/DL (0.2-1.0) Aspartate Amino Transf (AST/SGOT) 17 U/L (15-37) Alanine Aminotransferase (ALT/SGPT) 24 U/L (12-78) Alkaline Phosphatase 72 U/L (46-116) Total Protein 7.7 G/DL (6.4-8.2) Albumin 3.2 G/DL (3.4-5.0) L Globulin 4.5 g/dL Albumin/Globulin Ratio 0.7 (1.0-2.7) L Risk Assessment & Plan Assessment: ASA 3 Plan: GA, SED, GlideScope Go Status Change Before Surgery: No Pre-Antibiotics Dru Grams Ancef IV Given Within 1 Hr of Incision: Yes Time Given: 13:46 Palomo Guardado MD Mar 16, 2019 12:08
--- NOTE | 2019-03-16 12:09 | Immediate Post-Op Evaluation ---
Immediate Post-Op Evalulation Immediate Post-Op Evalulation Procedure: Laparoscopic Appendectomy Date of Evaluation: Mar 16, 2019 Time of Evaluation: 15:47 IV Fluids: 900 LR Blood Products: 0 Estimated Blood Loss: 30 Urinary Output: 0 Blood Pressure Systolic: 149 Blood Pressure Diastolic: 96 Pulse Rate: 90 Respiratory Rate: 16 O2 Sat by Pulse Oximetry: 97 Temperature (Fahrenheit): 97.6 Pain Score (1-10): 3 Nausea: No Vomiting: No Complications 0 Patient Status: awake, reacts, patent, extubated, none Hydration Status: adequate Dru grams Ancef IV Given Within 1 Hr of Incision: Yes Time Given: 13:46 Palomo Guardado MD Mar 16, 2019 12:09
[2019-03-16] MEDS ORDERED: Dexamethasone 4mg/ml vial ONE (12:16)
[2019-03-16] MEDS ORDERED: Propofol 200mg/20ml IV ONE (12:16)
[2019-03-16] MEDS ORDERED: Lidocaine 1% MPF 10mg/ml 5ml ONE (12:16)
[2019-03-16] MEDS ORDERED: fentaNYL 100 mcg/2 mL IV ONE (12:17)
[2019-03-16] MEDS ORDERED: Bacitracin 50000 Units Vial ONE (12:33)
[2019-03-16] MEDS ORDERED: NeoSporin Gu Irrig 1ml Amp IRRIG ONE (12:33)
--- NOTE | 2019-03-16 12:40 | NUR ---
NURSE NOTES: Transport arrived to bring patient down to industrial maintenance tech. Per industrial maintenance tech Inocente, patient will see the doctor and have the procedure explained to her. Surgery will obtain consent. Chart sent with industrial maintenance tech.Patient disconnected from fluids, IV flushed and patent. 20 abdirizak right hand. ID bracelet on left wrist. Patient did not have on any clothing besides hospital provided gown. The patient had no jewelry on. Upon leaving the room patient was calm, denied pain, and alert and oriented x 4. Will resume care when patient returns.
[2019-03-16] MEDS ORDERED: LR 1000ml ONE (13:30)
[2019-03-16] MEDS ORDERED: Rocuronium Bromide 50mg/5ml Inj IV ONE (13:30)
[2019-03-16] MEDS ORDERED: Sterile Water Irrig 1000ml IRRIG ONE (13:30)
--- NOTE | 2019-03-16 13:45 | Pre-Procedure Note/Attestation ---
Pre-Procedure Note/Attestation Complete Prior to Procedure Planned Procedure: not applicable Procedure Narrative: laparoscopic appendectomy possible open Indications for Procedure Pre-Operative Diagnosis: acute appendicitis Attestation I attest that I discussed the nature of the procedure; its benefits; risks and complications; and alternatives (and the risks and benefits of such alternatives ), prior to the procedure, with the patient (or the patient's legal national sales representative). I attest that, if there was a reasonable possibility of needing a blood transfusion, the patient (or the patient's legal national sales representative) was given the [facility] standardized written summary, pursuant to the [place] Blood Safety Act ([place] Health and Safety Code # 1645, as amended). I attest that I re-evaluated the patient just prior to the surgery and that there has been no change in the patient's H&P, except as documented below: Jaylen Godwin Mar 16, 2019 13:45
--- NOTE | 2019-03-16 13:45 | Consultation ---
History of Present Illness General Date patient seen: Mar 16, 2019 Reason for Hospitalization: Abdominal Pain Present Illness HPI 53-year-[facility] Complaining of abdominal pain for 4 days. States she was seen here end of February and noted to have UTI. Was prescribed antibiotics. States that she completed the antibiotics and states her dysuria has resolved but states that she started developing some abdominal pain, chills 4 days ago. Pain is dull, 8 out of 10, nonradiating. Denies chest pain or shortness of breath. Notes nausea and vomiting. Notes reduced appetite. No other aggravating relieving factors. Denies any other associated symptoms. In ED RLQ abd pain. leukocytosis. CT with acute uncomplicated appendicitis. surgery called to evaluate and assist with care. Allergies: Coded Allergies: No Known Allergies (Unverified , 04/07/16) Medication History Scheduled Lisinopril (Lisinopril*), 10 MG ORAL DAILY, (Reported) Nitrofurantoin Monohyd/M-Cryst* (Macrobid 100 Mg*), 100 MG ORAL EVERY 12 HOURS Phenazopyridine Hcl* (Pyridium*), 200 MG ORAL THREE TIMES A DAY Scheduled PRN Ibuprofen* (Motrin*), 600 MG ORAL TID PRN for For Pain, (Reported) Patient History History Provided By: Patient Healthcare decision maker Resuscitation status Full Code Advanced Directive on File No Past Medical/Surgical History Past Medical/Surgical History: (1) cervicitis (2) Urinary tract infection (3) Otitis externa (4) Otitis externa (5) Otitis externa (6) Eczematous dermatitis (7) Rash and other nonspecific skin eruption (8) Abscess (9) Eczematous dermatitis (10) Dizziness (11) Sinusitis (12) Trichomonas vaginalis infection (13) Bacterial vaginosis (14) GERD (gastroesophageal reflux disease) (15) Eczematous dermatitis (16) Hypertension (17) Upper respiratory infection (18) Appendicitis Review of Systems Review of Symptoms General ROS: no weight loss or fever Psychological ROS: no depression or mood changes, no memory loss Ophthalmic ROS: no visual changes or eye irritation ENT ROS: no nasal congestion, hearing loss, dizziness Allergy and Immunology ROS: no allergic symptoms or urticaria Hematological and Lymphatic ROS: no swollen glands, unusual bleeding or bruising Endocrine ROS: no polyuria, polydipsia, weight changes, temperature intolerance Respiratory ROS: no cough, shortness of breath, or wheezing Cardiovascular ROS: no chest pain or dyspnea on exertion Gastrointestinal ROS: abdominal pain, bright red blood in stool. Musculoskeletal ROS: no myalgias or arthralgias Neurological ROS: no TIA or stroke symptoms Dermatological ROS: no new or changing skin lesions, rashes or pruritis Physical Exam Physical Exam General appearance: alert, cooperative, no distress, appears stated age Head: Normocephalic, without obvious abnormality, atraumatic Eyes: conjunctivae/corneas clear. PERRL, EOM's intact. Fundi benign Throat: Lips, mucosa, and tongue normal. Teeth and gums normal Neck: supple, symmetrical, trachea midline, no adenopathy, thyroid: not enlarged, symmetric, no tenderness/mass/nodules, no carotid bruit and no JVD Lungs: clear to auscultation bilaterally Heart: regular rate and rhythm, S1, S2 normal, no murmur, click, rub or gallop Abdomen: soft, RLQ tender with rebound and guarding. Bowel sounds normal. No masses, no organomegaly Extremities: extremities normal, atraumatic, no cyanosis or edema Pulses: 2+ and symmetric Skin: Skin color, texture, turgor normal. No rashes or lesions Neurologic: Grossly normal Last 24 Hour Vital Signs Date Time Temp Pulse Resp B/P (MAP) Pulse Ox O2 Delivery O2 Flow Rate FiO2 03/16/19 09:00 Room Air 03/16/19 08:00 98.9 74 17 122/74 (90) 97 03/16/19 04:28 Room Air 03/16/19 04:15 97.5 70 16 112/82 97 Room Air 03/16/19 04:00 97.5 70 16 112/82 97 Room Air 03/16/19 03:00 97.5 76 14 110/85 98 Room Air 03/16/19 01:32 97.5 03/16/19 01:12 73 18 Room Air 03/16/19 01:05 97.5 73 18 106/90 96 Room Air 03/16/19 00:24 97.5 81 18 95/65 (75) 96 Room Air Intake and Output 03/15/19 03/16/19 18:59 06:59 Intake Total 1000 ml Balance 1000 ml Intake IV Total 1000 ml # Voids 1 Laboratory Tests Test 03/16/19 00:50 White Blood Count 14.2 K/UL (4.8-10.8) H Red Blood Count 3.00 M/UL (4.20-5.40) L Hemoglobin 10.3 G/DL (12.0-16.0) L Hematocrit 29.0 % (37.0-47.0) L Mean Corpuscular Volume 97 FL (80-99) Mean Corpuscular Hemoglobin 34.4 PG (27.0-31.0) H Mean Corpuscular Hemoglobin Concent 35.5 G/DL (32.0-36.0) Red Cell Distribution Width 10.3 % (11.6-14.8) L Platelet Count 289 K/UL (150-450) Mean Platelet Volume 6.1 FL (6.5-10.1) L Neutrophils (%) (Auto) 64.9 % (45.0-75.0) Lymphocytes (%) (Auto) 26.6 % (20.0-45.0) Monocytes (%) (Auto) 7.7 % (1.0-10.0) Eosinophils (%) (Auto) 0.3 % (0.0-3.0) Basophils (%) (Auto) 0.5 % (0.0-2.0) Prothrombin Time 10.1 SEC (9.30-11.50) Prothromb Time International Ratio 0.9 (0.9-1.1) Activated Partial Thromboplast Time 30 SEC (23-33) Urine Color Yellow Urine Appearance Clear Urine pH 6.5 (4.5-8.0) Urine Specific [place] 1.015 (1.005-1.035) Urine Protein 1+ (NEGATIVE) H Urine Glucose (UA) Negative (NEGATIVE) Urine Ketones Negative (NEGATIVE) Urine Blood Negative (NEGATIVE) Urine Nitrite Negative (NEGATIVE) Urine Bilirubin Negative (NEGATIVE) Urine Urobilinogen Normal MG/DL (0.0-1.0) Urine Leukocyte Esterase 1+ (NEGATIVE) H Urine RBC 0-2 /HPF (0 - 2) Urine WBC 0-2 /HPF (0 - 2) Urine Squamous Epithelial Cells Few /LPF (NONE/OCC) Urine Bacteria None /HPF (NONE) Sodium Level 140 MMOL/L (136-145) Potassium Level 4.0 MMOL/L (3.5-5.1) Chloride Level 106 MMOL/L (98-107) Carbon Dioxide Level 27 MMOL/L (21-32) Anion Gap 7 mmol/L (5-15) Blood Urea Nitrogen 9 mg/dL (7-18) Creatinine 1.1 MG/DL (0.55-1.30) Estimat Glomerular Filtration Rate > 60 mL/min (>60) Glucose Level 112 MG/DL (74-106) H Calcium Level 8.9 MG/DL (8.5-10.1) Total Bilirubin 0.6 MG/DL (0.2-1.0) Aspartate Amino Transf (AST/SGOT) 17 U/L (15-37) Alanine Aminotransferase (ALT/SGPT) 24 U/L (12-78) Alkaline Phosphatase 72 U/L (46-116) Total Protein 7.7 G/DL (6.4-8.2) Albumin 3.2 G/DL (3.4-5.0) L Globulin 4.5 g/dL Albumin/Globulin Ratio 0.7 (1.0-2.7) L Microbiology Date/Time Source Procedure Growth Status 03/16/19 00:50 Nasal Nares - Final Complete 03/16/19 00:50 Nasal Nares - Final Complete Height (Feet): 5 Height (Inches): 6.00 Weight (Pounds): 264 Medications Current Medications Medications (Trade) Dose Ordered Sig/Bernice Route PRN Reason Start Time Stop Time Status Last Admin Dose Admin Acetaminophen (Tylenol) 650 mg Q4H PRN ORAL Mild Pain/Temp > 100.5 03/16/19 05:30 04/15/19 05:29 03/16/19 08:33 Acetaminophen/ Hydrocodone Bitart ([place] 5/325) 1 tab Q1H PRN ORAL Mild Pain (Pain Scale 1-3) 03/16/19 12:00 03/16/19 21:00 Acetaminophen/ Hydrocodone Bitart ([place] 7.5/325) 1 tab Q1H PRN ORAL Moderate Pain (Pain Scale 4-6) 03/16/19 12:00 03/16/19 21:00 Al Hydroxide/Mg Hydroxide (Mylanta) 15 ml Q1H PRN ORAL gi upset 03/16/19 12:00 03/16/19 21:00 Atropine Sulfate (Atropine 0.4mg/ ml) 0.5 mg Q5M PRN IVP HR<40 03/16/19 12:00 03/16/19 21:00 Diphenhydramine HCl (Benadryl) 25 mg Q15M PRN IVP Itching 03/16/19 12:00 03/16/19 21:00 Fentanyl Citrate (Sublimaze 100 mcg/2 mL) 25 mcg Q10M PRN IV Moderate Pain (Pain Scale 4-6) 03/16/19 12:00 03/16/19 21:00 Hydralazine HCl (Apresoline) 5 mg Q30M PRN IV SBP>160 / DBP>90 03/16/19 12:00 03/16/19 21:00 Hydromorphone HCl (Dilaudid) 0.5 mg Q15M PRN IVP Severe Pain (Pain Scale 7-10) 03/16/19 12:00 03/16/19 21:00 Iohexol (OMNIPAQUE-300 100ml) 100 ml NOW PRN INJ Radiology Procedure 03/16/19 01:30 03/18/19 01:16 Ketorolac Tromethamine (Toradol 30mg) 15 mg Q1H PRN IV Moderate Breakthru Pain (5-7) 03/16/19 12:00 03/16/19 21:00 Ketorolac Tromethamine (Toradol 30mg) 30 mg Q1H PRN IV Severe Breakthru Pain (>7) 03/16/19 12:00 03/16/19 21:00 Labetalol HCl (Normodyne) 5 mg Q10M PRN IV SBP>160 / DBP>90 03/16/19 12:00 03/16/19 21:00 Lactated Ringer's 1,000 ml @ 10 mls/hr Q24H IVLG 03/16/19 12:00 03/16/19 13:59 Lorazepam (Ativan 2mg/ml 1ml) 1 mg Q15M PRN IV For Anxiety 03/16/19 12:00 03/16/19 21:00 Meperidine HCl (Demerol) 25 mg Q5M PRN IVP Shivering.May repeat x 1 03/16/19 12:00 03/16/19 21:00 Metoclopramide HCl (Reglan) 10 mg Q1H PRN IVP Nausea & Vomiting 03/16/19 12:00 03/16/19 21:00 Midazolam HCl (Versed 2mg/2ml vial) 1 mg Q15M PRN IVP For Anxiety 03/16/19 12:00 03/16/19 21:00 Ondansetron HCl (Zofran) 4 mg Q1H PRN IVP Nausea & Vomiting 03/16/19 12:00 03/16/19 21:00 Oxycodone/ Acetaminophen (Percocet 5-325) 1 tab Q1H PRN ORAL Severe Pain (Pain Scale 7-10) 03/16/19 12:00 03/16/19 21:00 Piperacillin Sod/ Tazobactam Sod 3.375 gm/Sodium Chloride 110 ml @ 27.5 mls/hr EVERY 8 HOURS IVPB 03/16/19 14:00 03/21/19 13:59 Sodium Chloride 1,000 ml @ 75 mls/hr [id number] IV 03/16/19 05:30 04/15/19 05:29 03/16/19 06:23 Assessment/Plan Problem List: (1) Appendicitis Assessment & Plan: 53F acute appendicitis leukocytosis HD stable exam with focal RLQ tenderness, rebound, guarding CT consistent with acute appy Findings: The appendix is enlarged, measuring up to 16 mm in diameter, and there is fairly extensive surrounding periappendiceal fat stranding/inflammation. There are also enlarged adjacent lymph nodes. No discrete extraluminal gas or fluid. No evidence of colonic diverticulosis or diverticulitis. The distal esophagus, stomach, duodenum are unremarkable. A small amount of free fluid is seen in the pelvis The gallbladder is distended. No definite gallstones. The common bile duct is mildly dilated, measuring up to 8 mm in diameter. No focal liver lesions. The pancreas, spleen, adrenals, right kidney are unremarkable. Left kidney demonstrates subcentimeter low-attenuation lesions which are too small to characterize. The uterus and ovaries are unremarkable. No pelvic mass or adenopathy. The included lung bases are clear. The bones demonstrate mild degenerative spondylosis changes. Impression: Evidence of acute appendicitis Small amount of free pelvic fluid, likely related to the above Mildly dilated common bile duct, without evidence of downstream obstructive lesion. Correlate with liver function tests, consider MRCP to better characterize if clinically indicated Subcentimeter low-attenuation left renal lesions, too small to characterize, most likely benign simple cyst. No further follow-up necessary Degenerative spondylosis changes incidentally noted surgery indicated and recommended npo iv fluids iv abx consent to OR for lap vs open appy thank you ICD Codes: K37 - Unspecified appendicitis SNOMED: [id number] Qualifiers: Qualified Codes: K35.80 - Unspecified acute appendicitis Jaylen Godwin Mar 16, 2019 13:45
[2019-03-16] MEDS ORDERED: NS Irrig 2000ml IRRIG ONE (14:00)
[2019-03-16] MEDS: Piperacillin/Tazobactam 3.375 GM in NS 110 ML IVPB SCH ×2 (14:00→21:52)
--- NOTE | 2019-03-16 14:08 | Consultation ---
History of Present Illness General Chief Complaint: Abdominal Pain Present Illness Allergies: Coded Allergies: No Known Allergies (Unverified , 04/07/16) Medication History Scheduled Lisinopril (Lisinopril*), 10 MG ORAL DAILY, (Reported) Nitrofurantoin Monohyd/M-Cryst* (Macrobid 100 Mg*), 100 MG ORAL EVERY 12 HOURS Phenazopyridine Hcl* (Pyridium*), 200 MG ORAL THREE TIMES A DAY Scheduled PRN Ibuprofen* (Motrin*), 600 MG ORAL TID PRN for For Pain, (Reported) Patient History Healthcare decision maker Resuscitation status Full Code Advanced Directive on File No Physical Exam Last 24 Hour Vital Signs Date Time Temp Pulse Resp B/P (MAP) Pulse Ox O2 Delivery O2 Flow Rate FiO2 03/16/19 09:00 Room Air 03/16/19 08:00 98.9 74 17 122/74 (90) 97 03/16/19 04:28 Room Air 03/16/19 04:15 97.5 70 16 112/82 97 Room Air 03/16/19 04:00 97.5 70 16 112/82 97 Room Air 03/16/19 03:00 97.5 76 14 110/85 98 Room Air 03/16/19 01:32 97.5 03/16/19 01:12 73 18 Room Air 03/16/19 01:05 97.5 73 18 106/90 96 Room Air 03/16/19 00:24 97.5 81 18 95/65 (75) 96 Room Air Intake and Output 03/15/19 03/16/19 18:59 06:59 Intake Total 1000 ml Balance 1000 ml Intake IV Total 1000 ml # Voids 1 Laboratory Tests Test 03/16/19 00:50 White Blood Count 14.2 K/UL (4.8-10.8) H Red Blood Count 3.00 M/UL (4.20-5.40) L Hemoglobin 10.3 G/DL (12.0-16.0) L Hematocrit 29.0 % (37.0-47.0) L Mean Corpuscular Volume 97 FL (80-99) Mean Corpuscular Hemoglobin 34.4 PG (27.0-31.0) H Mean Corpuscular Hemoglobin Concent 35.5 G/DL (32.0-36.0) Red Cell Distribution Width 10.3 % (11.6-14.8) L Platelet Count 289 K/UL (150-450) Mean Platelet Volume 6.1 FL (6.5-10.1) L Neutrophils (%) (Auto) 64.9 % (45.0-75.0) Lymphocytes (%) (Auto) 26.6 % (20.0-45.0) Monocytes (%) (Auto) 7.7 % (1.0-10.0) Eosinophils (%) (Auto) 0.3 % (0.0-3.0) Basophils (%) (Auto) 0.5 % (0.0-2.0) Prothrombin Time 10.1 SEC (9.30-11.50) Prothromb Time International Ratio 0.9 (0.9-1.1) Activated Partial Thromboplast Time 30 SEC (23-33) Urine Color Yellow Urine Appearance Clear Urine pH 6.5 (4.5-8.0) Urine Specific [place] 1.015 (1.005-1.035) Urine Protein 1+ (NEGATIVE) H Urine Glucose (UA) Negative (NEGATIVE) Urine Ketones Negative (NEGATIVE) Urine Blood Negative (NEGATIVE) Urine Nitrite Negative (NEGATIVE) Urine Bilirubin Negative (NEGATIVE) Urine Urobilinogen Normal MG/DL (0.0-1.0) Urine Leukocyte Esterase 1+ (NEGATIVE) H Urine RBC 0-2 /HPF (0 - 2) Urine WBC 0-2 /HPF (0 - 2) Urine Squamous Epithelial Cells Few /LPF (NONE/OCC) Urine Bacteria None /HPF (NONE) Sodium Level 140 MMOL/L (136-145) Potassium Level 4.0 MMOL/L (3.5-5.1) Chloride Level 106 MMOL/L (98-107) Carbon Dioxide Level 27 MMOL/L (21-32) Anion Gap 7 mmol/L (5-15) Blood Urea Nitrogen 9 mg/dL (7-18) Creatinine 1.1 MG/DL (0.55-1.30) Estimat Glomerular Filtration Rate > 60 mL/min (>60) Glucose Level 112 MG/DL (74-106) H Calcium Level 8.9 MG/DL (8.5-10.1) Total Bilirubin 0.6 MG/DL (0.2-1.0) Aspartate Amino Transf (AST/SGOT) 17 U/L (15-37) Alanine Aminotransferase (ALT/SGPT) 24 U/L (12-78) Alkaline Phosphatase 72 U/L (46-116) Total Protein 7.7 G/DL (6.4-8.2) Albumin 3.2 G/DL (3.4-5.0) L Globulin 4.5 g/dL Albumin/Globulin Ratio 0.7 (1.0-2.7) L Microbiology Date/Time Source Procedure Growth Status 03/16/19 00:50 Nasal Nares - Final Complete 03/16/19 00:50 Nasal Nares - Final Complete Height (Feet): 5 Height (Inches): 6.00 Weight (Pounds): 264 Medications Current Medications Medications (Trade) Dose Ordered Sig/Bernice Route PRN Reason Start Time Stop Time Status Last Admin Dose Admin Acetaminophen (Tylenol) 650 mg Q4H PRN ORAL Mild Pain/Temp > 100.5 03/16/19 05:30 04/15/19 05:29 03/16/19 08:33 Acetaminophen/ Hydrocodone Bitart ([place] 5/325) 1 tab Q1H PRN ORAL Mild Pain (Pain Scale 1-3) 03/16/19 12:00 03/16/19 21:00 Acetaminophen/ Hydrocodone Bitart ([place] 7.5/325) 1 tab Q1H PRN ORAL Moderate Pain (Pain Scale 4-6) 03/16/19 12:00 03/16/19 21:00 Al Hydroxide/Mg Hydroxide (Mylanta) 15 ml Q1H PRN ORAL gi upset 03/16/19 12:00 03/16/19 21:00 Atropine Sulfate (Atropine 0.4mg/ ml) 0.5 mg Q5M PRN IVP HR<40 03/16/19 12:00 03/16/19 21:00 Diphenhydramine HCl (Benadryl) 25 mg Q15M PRN IVP Itching 03/16/19 12:00 03/16/19 21:00 Fentanyl Citrate (Sublimaze 100 mcg/2 mL) 25 mcg Q10M PRN IV Moderate Pain (Pain Scale 4-6) 03/16/19 12:00 03/16/19 21:00 Hydralazine HCl (Apresoline) 5 mg Q30M PRN IV SBP>160 / DBP>90 03/16/19 12:00 03/16/19 21:00 Hydromorphone HCl (Dilaudid) 0.5 mg Q15M PRN IVP Severe Pain (Pain Scale 7-10) 03/16/19 12:00 03/16/19 21:00 Iohexol (OMNIPAQUE-300 100ml) 100 ml NOW PRN INJ Radiology Procedure 03/16/19 01:30 03/18/19 01:16 Ketorolac Tromethamine (Toradol 30mg) 15 mg Q1H PRN IV Moderate Breakthru Pain (5-7) 03/16/19 12:00 03/16/19 21:00 Ketorolac Tromethamine (Toradol 30mg) 30 mg Q1H PRN IV Severe Breakthru Pain (>7) 03/16/19 12:00 03/16/19 21:00 Labetalol HCl (Normodyne) 5 mg Q10M PRN IV SBP>160 / DBP>90 03/16/19 12:00 03/16/19 21:00 Lorazepam (Ativan 2mg/ml 1ml) 1 mg Q15M PRN IV For Anxiety 03/16/19 12:00 03/16/19 21:00 Meperidine HCl (Demerol) 25 mg Q5M PRN IVP Shivering.May repeat x 1 03/16/19 12:00 03/16/19 21:00 Metoclopramide HCl (Reglan) 10 mg Q1H PRN IVP Nausea & Vomiting 03/16/19 12:00 03/16/19 21:00 Midazolam HCl (Versed 2mg/2ml vial) 1 mg Q15M PRN IVP For Anxiety 03/16/19 12:00 03/16/19 21:00 Ondansetron HCl (Zofran) 4 mg Q1H PRN IVP Nausea & Vomiting 03/16/19 12:00 03/16/19 21:00 Oxycodone/ Acetaminophen (Percocet 5-325) 1 tab Q1H PRN ORAL Severe Pain (Pain Scale 7-10) 03/16/19 12:00 03/16/19 21:00 Piperacillin Sod/ Tazobactam Sod 3.375 gm/Sodium Chloride 110 ml @ 27.5 mls/hr EVERY 8 HOURS IVPB 03/16/19 14:00 03/21/19 13:59 Sodium Chloride 1,000 ml @ 75 mls/hr [id number] IV 03/16/19 05:30 04/15/19 05:29 03/16/19 06:23 Assessment/Plan Assessment/Plan: Hematology Consultation Reason for Hospitalization: Abdominal Pain REQ MD: Shmuel Harrison RFC: ANemia evaluation preop HPI 53-year-old female presents ED for evaluation at [facility] [place] [facility]. Complaining of abdominal pain for 4 days. States she was seen here end of February and noted to have UTI. Was prescribed antibiotics. States that she completed the antibiotics and states her dysuria has resolved but states that she started developing some abdominal pain, chills 4 days ago. Pain is dull, 8 out of 10, nonradiating. Denies chest pain or shortness of breath. Notes nausea and vomiting. Notes reduced appetite. No other aggravating relieving factors. Denies any other associated symptoms. In ED RLQ abd pain. leukocytosis. CT with acute uncomplicated appendicitis. surgery called to evaluate and assist with care. Surgery has evaluated, may proceed with choly closed v open and heme consulted for anemia optimization, w/u. Coded Allergies: No Known Allergies (Unverified , 04/07/16) Medication History Scheduled Lisinopril (Lisinopril*), 10 MG ORAL DAILY, (Reported) Nitrofurantoin Monohyd/M-Cryst* (Macrobid 100 Mg*), 100 MG ORAL EVERY 12 HOURS Phenazopyridine Hcl* (Pyridium*), 200 MG ORAL THREE TIMES A DAY Ibuprofen* (Motrin*), 600 MG ORAL TID PRN for For Pain, (Reported) Patient History History Provided By: Patient Healthcare decision maker Resuscitation status Full Code Advanced Directive on File No Past Medical/Surgical History Past Medical/Surgical History: (1) cervicitis (2) Urinary tract infection (3) Otitis externa (4) Otitis externa (5) Otitis externa (6) Eczematous dermatitis (7) Rash and other nonspecific skin eruption (8) Abscess (9) Eczematous dermatitis (10) Dizziness (11) Sinusitis (12) Trichomonas vaginalis infection (13) Bacterial vaginosis (14) GERD (gastroesophageal reflux disease) (15) Eczematous dermatitis (16) Hypertension (17) Upper respiratory infection (18) Appendicitis ROS General: Denies fatigue, fever, chills, weight loss; + weight gain as above HENT: Denies oral sores, neck masses, nasal d/c, hearing problems Vison: Denies change in vision, eye pain, redness, discharge Cardiac: As above Pulmonary: As above GI: ++ abd pain last several days : ++ dysuria Neuro: Denies seizure, weakness, numbness Endo: Denies heat/cold intolerance, weight changes, polyuria, polydipsia Heme/Onc: Denies unusual bleeding, bruising, clotting MSK: Denies join pain, swelling, muscle aches Mental Health: Denies anxiety, depression, mood changes PE: Vitals: reviewed General Appearance: NAD HEENT: normocephalic, atraumatic Neck: non-tender, normal alignment Respiratory/Chest: normal breath sounds bilaterally Cardiovascular/Chest: normal peripheral pulses, normal rate Abdomen: normal bowel sounds, slightly ttp rlq Extremities: normal range of motion Assessment/Plan # Anemia of chronic disease OR of iron deficiency - due to underlying chronic medical issues, multifactorial v Gi bleed --> Anemia workup has been ordered, rule out gi bleed --> No evidence of hemolysis is noted, peripheral smear has been reviewed. --> Hgb goal >7. Transfuse prn. --> Epogen or iron at this time is not particularly indicated --> Medications have been reviewed --> low threshold for gi evaluation in case has occult + --> bone marrow biopsy is not indicated given the other more likely causes # Leukocytosis on admission --> likely relarted to underlying appendicitis --> id abx and surg eval # Appendicitis, acute onset --> exam cw this and CT consistent with acute appy --> to proceed with surgery # Subcentimeter low-attenuation left renal lesions, too small to characterize, most likely benign simple cyst. No further follow-up necessary # Degenerative spondylosis changes incidentally noted # Dvt ppx lovenox once surgery completed DW Rn in am and appreciate consultation Andre Leon MD Mar 16, 2019 14:08
--- NOTE | 2019-03-16 14:15 | Consultation ---
DATE OF CONSULTATION: 03/16/2019 GASTROENTEROLOGY CONSULTATION CONSULTING PHYSICIAN: Nas Macdonald M.D. CHIEF COMPLAINT: I was asked to see this patient by Dr. Shmuel Niño for evaluation of appendicitis. HISTORY OF PRESENT ILLNESS: The patient is a pleasant 53-year-old woman, who was admitted for abdominal pain. She apparently had an episode of urinary tract infection about a week ago and was treated with antibiotics. About 4 days ago, she started noticing central abdominal discomfort, which progressively worsened and localized to the right lower quadrant. She came to the emergency room where a CT scan showed inflammatory changes and a distended appendix suggestive of acute appendicitis. The patient has not had any significant past gastrointestinal history. She is NPO at this point. PAST MEDICAL HISTORY: History of hypertension. FAMILY HISTORY: Positive for heart disease in mother. SOCIAL HISTORY: The patient is single. She has 5 children. She does not smoke. She drinks occasionally. REVIEW OF SYSTEMS: Otherwise negative. PHYSICAL EXAMINATION: GENERAL: A well-developed, obese woman, seen in her room with the daughter at bedside. HEENT: Normocephalic and atraumatic. Sclerae anicteric. Oropharynx clear. NECK: Supple. CHEST: Clear to auscultation. CARDIOVASCULAR: Revealed a regular rate. ABDOMEN: Obese with good bowel sounds. There was right lower quadrant tenderness to palpation. There is some mild voluntary guarding. EXTREMITIES: Revealed no edema. NEUROLOGIC: Grossly nonfocal. LABORATORY DATA: Noted. IMAGING: CT scan was reviewed. ASSESSMENT: This patient presents with acute appendicitis, which will need to be treated surgically. The patient will be kept NPO and surgical resection should be curative. Pain medications can be given in the meantime as needed. The patient also was noted to have anemia and she was advised to have an endoscopy and colonoscopy in a month or two once recovered from the surgery. She was advised to set to follow up with a primary care physician as an outpatient. RECOMMENDATIONS: 1. NPO except medications. 2. IV fluids. 3. Pain control. 4. Surgical consultation for appendectomy. 5. Outpatient endoscopy and colonoscopy. Thank you for asking me to participate in the care of this patient. Nas Macdonald M.D. DR: YOBANY JOB#: [id number] CC:
[2019-03-16 15:08] LABS: FERRITIN 249 NG/ML (8-388)
[2019-03-16] MEDS ORDERED: Glycopyrrolate 0.2mg/ml 1ml Vial ONE (15:08)
[2019-03-16] MEDS ORDERED: Neostigmine 1mg/ml 10ml Inj ONE (15:08)
[2019-03-16 15:39] LABS: % IRON SATURATION 8 % (15-50); IRON 16 ug/dL (50-175); TOTAL IRON BINDING CAPACITY 207 ug/dL (250-450)
--- NOTE | 2019-03-16 15:44 | Brief Operative Note ---
Immediate Post Operative Note Operative Note Pre-op Diagnosis: acute appendicitis Procedure: lap appy lysis of adhesions Post-op Diagnosis: acute perforated appendicitis dense adhesions from prior surgery Surgeon: cornelius Anesthesiologist: marquise Anesthesia: general, local Specimen: yes Complications: none Condition: stable Fluids: see records Estimated Blood Loss: minimal Drains: none Implant(s) used?: No Jaylen Godwin Mar 16, 2019 15:44
[2019-03-16] MEDS ORDERED: Morphine Sulfate 2mg/ml Inj(IV/IM USE ONLY) IVP PRN (15:45)
--- NOTE | 2019-03-16 16:50 | NUR ---
NURSE NOTES: Patient returned to floor by Rebecca MCKINNEY. Patient had a laparoscopic appendectomy. 3 Incision points noted on abdomen. Covered by steri strips. No sign of infection or irritation. Patient afebrile with a temperature of 98.6. Blood pressure 137/78, heart rate of 85 beats per minute, oxygen at 97 % room air, and 18 respirations a minute. Patient awake and alert x 4, however is sleepy. Patient stated that she was uncomfortable, repositioned patient onto left side. Patient complains of feeling bloated and the need to burp, was educated that this is related to the procedure. No complaints of pain. Patient has morphine ordered PRN for breakthrough pain. Acetaminophen ordered to be given around the clock for pain management. Patient changed from LR to Normal saline at 75 mL/hr running through 20 abdirizak IV in right hand. IV is patent, flushes, no signs of edema or erythema. Patient is allowed to get up out of bed as tolerated. Educated patient to call for assistance if need to get up. Will start patient on clear liquids and advance as tolerated to a regular diet. 1400 Zosyn was not administered to the patient due to patient being off unit for procedure. Called pharmacy. Resume again at 2200 due to patient getting 2 grams of Ancef post surgery. will continue to monitor patient and follow care plan.
--- NOTE | 2019-03-16 19:45 | NUR ---
HAND-OFF: Report given to Jagdeep.
--- NOTE | 2019-03-16 19:47 | NUR ---
NURSE NOTES: Pt received sitting in bed with daughter at bedside. No active bleeding from steri strip sites. Pt. AAOx4, discussed advancing diet as tolerated. No pain or acute SOB indicated at this time. Bed in the low and locked position, side rails are up, and call light is in reach.
--- NOTE | 2019-03-16 21:00 | NUR ---
NURSE NOTES: Pt is in bed, awake and alert. Pt is ambulatory. Lap sites are dry and intact. Pt has her daughter saying in the room with her. Pt instructed to collect stool for the lab. Pt will be monitored. Trainee Ulices Birmingham RN will be assisting in the care of the patient.
--- NOTE | 2019-03-16 23:00 | Operative Note - Dictated ---
DATE OF OPERATION: 03/16/2019 PREOPERATIVE DIAGNOSIS: Acute appendicitis. POSTOPERATIVE DIAGNOSIS: Acute perforated appendicitis. OPERATION PERFORMED: 1. Laparoscopic appendectomy. 2. Extensive laparoscopic lysis of adhesions. 3. Abdominal washout. ATTENDING SURGEON: Jaylen Godwin M.D. ADVANCED MANAGER: None. ANESTHESIOLOGIST: Palomo Guardado M.D. ANESTHESIA: General FIELD CANE SCALE CLERK. ESTIMATED BLOOD LOSS: Minimal. IV FLUIDS: Please see anesthesia records. COMPLICATIONS: None. DRAINS: None. COUNTS: Sponge and needle count correct x2. WOUND CLASSIFICATION: Class 3. SPECIMENS: Appendix sent to pathology for review. ANTIBIOTICS: The patient is on scheduled IV antibiotics for active inflammatory infectious process. INDICATIONS FOR PROCEDURE: This is a very pleasant 53-year-old female, who presented to [facility] Emergency Department complaining of worsening abdominal pain for approximately 4 days. The patient initially presented few weeks ago and was identified to have urinary tract infection, given antibiotics and since improved, but recently began to develop some discomfort and believed there maybe similar symptoms, but as pain progressed and continued along with night sweats, she came in for evaluation at which time it was identified to have a leukocytosis and acute appendicitis based on CT findings and examination of the right lower quadrant pain. The patient was admitted for care and management and seen by myself with focal right lower quadrant tenderness. CT reviewed and surgery was indicated and recommended. Risks, benefits, and alternatives were discussed with the patient in detail, who expressed understanding. The patient stated she has had a tubal prior requiring a surgery for removal of the tube. Given these findings, I expressed the patient there is a high potential for open surgery. The patient expressed understanding. OPERATIVE NOTE: The patient was taken to the operating room and placed on the operating table in supine position with left arm tucked. All bony prominences were well padded. SCDs placed. Preoperative time-out taken in identifying the patient, procedure, operative staff, and surgical staff. The patient voided prior to entering the operating room, so no Ledesma was inserted. The patient was already on scheduled IV antibiotics. General anesthesia was induced and the patient was intubated. The abdomen was clipped, prepped, and draped in the standard surgical fashion. A local anesthetic was infiltrated at all skin incisions and port sites throughout the procedure to the patient's comfort. An infraumbilical incision was made and using a fresh #11 scalpel, carried down to the fascia, which was elevated and incised. Entry into the abdomen was obtained using open Julio technique without complication. A 12 mm Julio trocar was inserted and the abdomen was insufflated to 12 to 15 mmHg. The patient tolerated the insufflation well. Laparoscope was inserted and the abdomen was inspected. There was some serous fluid in the pelvis and right lower quadrant. There was significant dense adhesions in the lower abdomen and pelvis of the omentum draping up to the anterior abdominal wall from the area of incision of the patient's prior healed Pfannenstiel incision. Unfortunately, at this time it was clearly identified that evaluating the right lower quadrant, cecum, and appendix would be very difficult given the amount of adhesions in this location. It was noted that lysis of adhesions was going to be required. Trocar positioning was requiring modification to allow for both laparoscopic appendectomy and appropriate lysis of adhesions given the location. An area in the abdominal wall was identified laterally on the left side where safely a 10 mm trocar could be inserted. Skin incision was made and a 10 mm trocar inserted under direct visualization without complication. Utilizing this trocar and surgical laparoscopic scissors with electrocautery, the distal end of the omentum was draped and attached to the anterior abdominal wall was slowly dissected down. Approximately 30 to 45 minutes of lysis of adhesions were required to visualization of the right lower quadrant and proceeded with appendectomy. During this time, a 5 mm suprapubic port was inserted under visualization without complication. Once this was completed, the omentum was evaluated and noted to be hemostatic and placed in the upper abdomen. The remainder of the small bowel, intestines that were noted were otherwise healthy and stable without injury or complication. The cecum was identified and followed down to the confluence. A very edematous and inflammatory area of mesentery was identified bulging at the juncture of the cecum and terminal ileum at the ileocecal valve. The terminal ileum was identified clearly entering within the cecum. The appendix was then identified being retrocecal. Gentle dissection was performed and it was performed in the retrocecal aspect identifying the appendix and in doing so, pus began to evacuate clearly identifying a perforated contained appendicitis. Following this, the remaining of the appendix was identified from base of the tip and mid appendiceal perforation was clearly evident as well as necrosis of the distal appendix and tip. The appendix was gently dissected out and the base of the appendix was identified and noted to be healthy. Window was made at the base of the appendix and mesoappendix. A laparoscopic linear stapler was used and it was divided without complication. The mesoappendix was then divided in a similar fashion without complication. Laparoscopic clips were used to obtain hemostasis from the staple line of both the mesentery and the base of the appendix. Once this was completed, the appendix was placed in endoscopic retrieval bag and removed from the abdomen using the left lower quadrant port site. The abdomen was then irrigated and inspected with copious amounts of warm normal saline until clear. Good hemostasis noted. No other abnormalities noted. At this time, we began the conclusion of the procedure. Secondary trocars removed under direct visualization followed by the umbilical trocar site. The umbilical trocar site fascia was reapproximated using a [id number] #0 Vicryl suture. The remaining skin incisions were cleansed and reapproximated using 4-0 Monocryl subcuticular interrupted sutures. Steri-Strips and skin glue were applied. The patient tolerated the procedure well, was extubated, and taken to postanesthesia care unit in stable condition. Jaylen Godwin M.D. DR: CHERYL JOB#: [id number] CC: ROX
[2019-03-17] VITALS: BP 115/77
--- NOTE | 2019-03-17 03:14 | NUR ---
NURSE NOTES: Pt is in bed, asleep. No acute distress noted.
[2019-03-17 04:00] VITALS: BP 110/65
--- NOTE | 2019-03-17 05:15 | History and Physical Report ---
DATE OF ADMISSION: 03/16/2019 HISTORY OF PRESENT ILLNESS: The patient is admitted for appendicitis. The patient complains of abdominal pain for five days associated with chills and vomiting, admitted for appendicitis. I have also asked to see that if he can talk to Dr. Godwin to take the patient directly to the OR and said that the CT did not show any perforated appendix and the patient was stable and he said that he had spoken with Dr. Godwin and that he was okay with the patient going to the floor directly. So that decision was made by the surgeon, Dr. Godwin. PAST MEDICAL HISTORY: Significant for ectopic , history of GERD, history of eczema, history of hypertension. MEDICATIONS: Lisinopril. ALLERGIES: No known allergies. PAST SURGICAL HISTORY: Ectopic surgery and . FAMILY HISTORY: Noncontributory. SOCIAL HISTORY: Denies history of smoking, alcohol, or illicit drugs. REVIEW OF SYSTEMS: HEENT: Denies headaches. RESPIRATORY: Denies shortness of breath. Denies cough. CARDIOVASCULAR: Denies chest pain. Denies orthopnea. GASTROINTESTINAL: Reports abdominal pain and vomiting for five days. EXTREMITIES: Denies pain in the lower extremities. CENTRAL NERVOUS SYSTEM: Denies change in vision or speech pattern. PHYSICAL EXAMINATION: VITAL SIGNS: Temperature is 97.4, pulse 79, and blood pressure 140/82. HEENT: PERRLA. NECK: Supple. No lymphadenopathy. CHEST: Clear to auscultation. CARDIOVASCULAR: Regular rate and rhythm. No murmurs or extra sounds. GASTROINTESTINAL: Abdomen, there is no rebound tenderness. Abdomen is soft. Does have some epigastric tenderness. No organomegaly. Abdomen has positive bowel sounds. EXTREMITIES: No edema. Reflexes equal on both sides. Moves all four extremities. LABORATORY DATA: WBC of 14.2, hemoglobin 10.3, and platelets 289. Sodium 140, potassium 4, BUN of 9, creatinine 1.1. ASSESSMENT AND PLAN: Appendicitis. Dr. Godwin was consulted as well as Dr. Macdonald and Dr. Reji Nuñez for the antibiotics. Decision per Dr. Godwin. Shmuel Niño M.D. DR: SANTIAGO JOB#: [id number] CC:
[2019-03-17] MEDS: Piperacillin/Tazobactam 3.375 GM in NS 110 ML IVPB SCH ×3 (05:25→22:11)
--- NOTE | 2019-03-17 07:31 | NUR ---
HAND-OFF: Report given to Harleen Weber RN.
[2019-03-17 08:00] VITALS: BP 102/62
--- NOTE | 2019-03-17 08:00 | NUR ---
NURSE NOTES: Received report from Jagdeep RN, pt a/a/o x4 laying in bed with no signs of distress or other issues at this time. IV on the right and gauge #20 [id number]. surgical incision c/d/i. pt is passing flatus but unable to have a BM yet. pt is aware that BM needs to be collected. pt verbalized understanding. call light within reach, bed in lowest position, side rales up x2. I will f/u as needed.
[2019-03-17 09:01] LABS: HEMOGLOBIN 8.8 G/DL (12.0-16.0); MEAN CORPUSCULAR VOLUME 104 FL (80-99); PLATELET COUNT 279 K/UL (150-450); RED BLOOD COUNT 2.61 M/UL (4.20-5.40); RED CELL DISTRIBUTION WIDTH 11.4 % (11.6-14.8); WHITE BLOOD COUNT 19.2 K/UL (4.8-10.8)
[2019-03-17 09:16] LABS: ANION GAP 9 mmol/L (5-15); BLOOD UREA NITROGEN 11 mg/dL (7-18); CALCIUM 8.4 MG/DL (8.5-10.1); CARBON DIOXIDE 25 MMOL/L (21-32); CHLORIDE 105 MMOL/L (98-107); CREATININE 1.1 MG/DL (0.55-1.30); SODIUM 139 MMOL/L (136-145)
--- NOTE | 2019-03-17 09:22 | Hematology/Onc Progress Note ---
Assessment/Plan Assessment/Plan Assessment/Plan # Anemia of chronic disease - due to underlying chronic medical issues, multifactorial v Gi bleed, also in this case likely hemodilutional s/p surgery/ choly --> Anemia workup has been ordered and has been reviewed , cw acd --> No evidence of hemolysis is noted, peripheral smear has been reviewed. --> Hgb goal >7. Transfuse prn. --> Epogen or iron at this time is not particularly indicated --> Medications have been reviewed --> low threshold for gi evaluation in case has occult + --> bone marrow biopsy is not indicated given the other more likely causes # Leukocytosis on admission is likely reactive to sx --> likely relarted to underlying appendicitis --> id abx and surg eval --> wbc trend 14-->19 # Appendicitis, acute onset --> exam cw this and CT consistent with acute appy --> 03/16 s/p lap choly # Subcentimeter low-attenuation left renal lesions, too small to characterize, most likely benign simple cyst. No further follow-up necessary # Degenerative spondylosis changes incidentally noted # Dvt ppx lovenox once surgery completed DW Rn in am and appreciate consultation Subjective Constitutional: Denies: no symptoms, chills, fever, malaise, weakness, other HEENT: Denies: no symptoms, eye pain, blurred vision, tearing, double vision, ear pain, ear discharge, nose pain, nose congestion, throat pain, throat swelling, mouth pain, mouth swelling, other Cardiovascular: Denies: no symptoms, chest pain, edema, irregular heart rate, lightheadedness, palpitations, syncope, other Respiratory: Denies: no symptoms, cough, shortness of breath, SOB with excertion, SOB at rest, sputum, wheezing, other Gastrointestinal/Abdominal: Denies: no symptoms, abdomen distended, abdominal pain, black stools, tarry stools, blood in stool, constipated, diarrhea, difficulty swallowing, nausea, poor appetite, poor fluid intake, rectal bleeding , vomiting, other Genitourinary: Denies: no symptoms, burning, discharge, frequency, flank pain, hematuria, incontinence, pain, urgency, other Endocrine: Denies: no symptoms, excessive sweating, flushing, intolerance to cold, intolerance to heat, increased hunger, increased thirst, increased urine, unexplained weight gain, unexplained weight loss, other Hematologic/Lymphatic: Denies: no symptoms, anemia, easy bleeding, easy bruising, adenopathy, other Allergies: Coded Allergies: No Known Allergies (Unverified , 04/07/16) Subjective 03/17: mary Thomascelso, is s/p lap choly, no bleeding, site cdi, with gas, hgb 8.8 Objective Objective Current Medications Medications (Trade) Dose Ordered Sig/Bernice Route PRN Reason Start Time Stop Time Status Last Admin Dose Admin Acetaminophen (Tylenol) 650 mg Q4H PRN ORAL Mild Pain/Temp > 100.5 03/16/19 05:30 04/15/19 05:29 03/16/19 08:33 Acetaminophen (Tylenol) 650 mg Q6H PRN ORAL Mild Pain (Pain Scale 1-3) 03/16/19 15:45 04/15/19 15:44 Iohexol (OMNIPAQUE-300 100ml) 100 ml NOW PRN INJ Radiology Procedure 03/16/19 01:30 03/18/19 01:16 Morphine Sulfate (Morphine Sulfate) 2 mg Q4H PRN IVP pain scale 4-6 03/16/19 15:45 03/23/19 15:44 Morphine Sulfate (Morphine Sulfate) 4 mg Q4H PRN IVP pain score 7-10 03/16/19 15:45 03/23/19 15:44 Piperacillin Sod/ Tazobactam Sod 3.375 gm/Sodium Chloride 110 ml @ 27.5 mls/hr EVERY 8 HOURS IVPB 03/16/19 14:00 03/21/19 13:59 03/17/19 05:25 Sodium Chloride 1,000 ml @ 75 mls/hr [id number] IV 03/16/19 05:30 04/15/19 05:29 03/17/19 05:34 Last 24 Hour Vital Signs Date Time Temp Pulse Resp B/P (MAP) Pulse Ox O2 Delivery O2 Flow Rate FiO2 03/17/19 04:00 97.3 83 20 110/65 (80) 95 03/17/19 00:00 98.9 92 19 115/77 (90) 96 03/16/19 21:00 Room Air 03/16/19 20:00 98.5 91 20 149/86 (107) 97 03/16/19 16:50 98.6 85 18 137/78 (97) 97 03/16/19 16:45 97.4 79 16 140/82 100 Nasal Cannula 3 79 03/16/19 16:30 83 15 146/86 100 Nasal Cannula 3 83 03/16/19 16:15 80 18 147/84 100 Nasal Cannula 3 80 03/16/19 16:00 78 14 143/85 100 Nasal Cannula 3 78 03/16/19 15:50 81 19 147/87 100 Nasal Cannula 3 81 03/16/19 15:40 77 15 142/86 100 Simple Mask 6 77 03/16/19 15:32 90 16 97 03/16/19 15:30 97.8 82 16 149/94 100 Simple Mask 6 82 03/16/19 12:00 99.6 72 19 125/79 (94) 97 03/16/19 12:00 97.4 03/16/19 09:00 Room Air 03/16/19 08:00 98.9 74 17 122/74 (90) 97 03/16/19 04:28 Room Air 03/16/19 04:15 97.5 70 16 112/82 97 Room Air 03/16/19 04:00 97.5 70 16 112/82 97 Room Air 03/16/19 03:00 97.5 76 14 110/85 98 Room Air 03/16/19 01:32 97.5 03/16/19 01:12 73 18 Room Air 03/16/19 01:05 97.5 73 18 106/90 96 Room Air 03/16/19 00:24 97.5 81 18 95/65 (75) 96 Room Air Intake and Output 03/16/19 03/17/19 19:00 07:00 Intake Total 875 ml 540.0 ml Balance 875 ml 540.0 ml Intake Oral 0 ml IV Total 875 ml 540.0 ml # Voids 1 2 Labs Test 03/16/19 00:50 03/17/19 08:22 White Blood Count 14.2 K/UL (4.8-10.8) 19.2 K/UL (4.8-10.8) Red Blood Count 3.00 M/UL (4.20-5.40) 2.61 M/UL (4.20-5.40) Hemoglobin 10.3 G/DL (12.0-16.0) 8.8 G/DL (12.0-16.0) Hematocrit 29.0 % (37.0-47.0) 27.0 % (37.0-47.0) Mean Corpuscular Volume 97 FL (80-99) 104 FL (80-99) Mean Corpuscular Hemoglobin 34.4 PG (27.0-31.0) 33.7 PG (27.0-31.0) Mean Corpuscular Hemoglobin Concent 35.5 G/DL (32.0-36.0) 32.5 G/DL (32.0-36.0) Red Cell Distribution Width 10.3 % (11.6-14.8) 11.4 % (11.6-14.8) Platelet Count 289 K/UL (150-450) 279 K/UL (150-450) Mean Platelet Volume 6.1 FL (6.5-10.1) 6.9 FL (6.5-10.1) Neutrophils (%) (Auto) 64.9 % (45.0-75.0) % (45.0-75.0) Lymphocytes (%) (Auto) 26.6 % (20.0-45.0) % (20.0-45.0) Monocytes (%) (Auto) 7.7 % (1.0-10.0) % (1.0-10.0) Eosinophils (%) (Auto) 0.3 % (0.0-3.0) % (0.0-3.0) Basophils (%) (Auto) 0.5 % (0.0-2.0) % (0.0-2.0) Prothrombin Time 10.1 SEC (9.30-11.50) Prothromb Time International Ratio 0.9 (0.9-1.1) Activated Partial Thromboplast Time 30 SEC (23-33) Urine Color Yellow Urine Appearance Clear Urine pH 6.5 (4.5-8.0) Urine Specific [place] 1.015 (1.005-1.035) Urine Protein 1+ (NEGATIVE) Urine Glucose (UA) Negative (NEGATIVE) Urine Ketones Negative (NEGATIVE) Urine Blood Negative (NEGATIVE) Urine Nitrite Negative (NEGATIVE) Urine Bilirubin Negative (NEGATIVE) Urine Urobilinogen Normal MG/DL (0.0-1.0) Urine Leukocyte Esterase 1+ (NEGATIVE) Urine RBC 0-2 /HPF (0 - 2) Urine WBC 0-2 /HPF (0 - 2) Urine Squamous Epithelial Cells Few /LPF (NONE/OCC) Urine Bacteria None /HPF (NONE) Sodium Level 140 MMOL/L (136-145) 139 MMOL/L (136-145) Potassium Level 4.0 MMOL/L (3.5-5.1) 4.0 MMOL/L (3.5-5.1) Chloride Level 106 MMOL/L (98-107) 105 MMOL/L (98-107) Carbon Dioxide Level 27 MMOL/L (21-32) 25 MMOL/L (21-32) Anion Gap 7 mmol/L (5-15) 9 mmol/L (5-15) Blood Urea Nitrogen 9 mg/dL (7-18) 11 mg/dL (7-18) Creatinine 1.1 MG/DL (0.55-1.30) 1.1 MG/DL (0.55-1.30) Estimat Glomerular Filtration Rate > 60 mL/min (>60) > 60 mL/min (>60) Glucose Level 112 MG/DL (74-106) 130 MG/DL (74-106) Calcium Level 8.9 MG/DL (8.5-10.1) 8.4 MG/DL (8.5-10.1) Iron Level 16 ug/dL (50-175) Total Iron Binding Capacity 207 ug/dL (250-450) Percent Iron Saturation 8 % (15-50) Unsaturated Iron Binding 191 ug/dL (112-346) Ferritin 249 NG/ML (8-388) Total Bilirubin 0.6 MG/DL (0.2-1.0) Aspartate Amino Transf (AST/SGOT) 17 U/L (15-37) Alanine Aminotransferase (ALT/SGPT) 24 U/L (12-78) Alkaline Phosphatase 72 U/L (46-116) Total Protein 7.7 G/DL (6.4-8.2) Albumin 3.2 G/DL (3.4-5.0) Globulin 4.5 g/dL Albumin/Globulin Ratio 0.7 (1.0-2.7) Vitamin B12 Level 273 PG/ML (193-986) Folate 23.5 NG/ML (8.6-58.9) Thyroid Stimulating Hormone (TSH) 2.199 uiU/mL (0.358-3.740) Height (Feet): 5 Height (Inches): 6.00 Weight (Pounds): 264 Objective PE: Vitals: reviewed General Appearance: NAD HEENT: normocephalic, atraumatic Neck: non-tender, normal alignment Respiratory/Chest: normal breath sounds bilaterally Cardiovascular/Chest: normal peripheral pulses, normal rate Abdomen: normal bowel sounds, site c/d/i ruq Extremities: normal range of motion Andre Leon MD Mar 17, 2019 09:22
[2019-03-17 12:00] VITALS: BP 109/61
--- NOTE | 2019-03-17 12:28 | 48 Hour Post Anesthesia Eval ---
Post Anesthesia Evaluation Procedure: Laparoscopic Appendectomy Date of Evaluation: Mar 17, 2019 Time of Evaluation: 12:26 Blood Pressure Systolic: 102 0: 62 Pulse Rate: 83 Respiratory Rate: 18 Temperature (Fahrenheit): 99.4 O2 Sat by Pulse Oximetry: 96 Airway: patent Nausea: No Vomiting: No Pain Intensity: 2 Hydration Status: adequate Cardiopulmonary Status: stable Mental Status/LOC: patient returned to baseline Follow-up Care/Observations: per hospitalist and gen surgery Post-Anesthesia Complications: none Follow-up care needed: N/A Swati Del Rio CRNA Mar 17, 2019 12:28
--- NOTE | 2019-03-17 13:06 | GI Progress Note ---
Assessment/Plan Problems: (1) Appendicitis ICD Codes: K37 - Unspecified appendicitis SNOMED: [id number] Qualifiers: Qualified Codes: K35.80 - Unspecified acute appendicitis Status: progressing Status Narrative Discussed with Dr. Zacarias. Assessment/Plan Assessment - Acute appendicitis - Anemia - Obesity - s/p laparoscopic appendectomy Recommendations - Diet per surgery - Zofran PRN as needed for nausea vomiting - Pain management - PPI - outpatient EGD/Colon once recovered from surgery The patient was seen and examined at bedside and all new and available data was reviewed in the patients chart. I agree with the above findings, impression and plan. (Patient seen earlier today. Signature stamp does not reflect patient encounter time.). - Davin Zacarias MD Subjective Subjective abdominal tenderness Objective Last 24 Hour Vital Signs Date Time Temp Pulse Resp B/P (MAP) Pulse Ox O2 Delivery O2 Flow Rate FiO2 03/17/19 12:28 83 18 96 03/17/19 09:00 Room Air 03/17/19 08:00 99.4 83 18 102/62 (75) 96 03/17/19 04:00 97.3 83 20 110/65 (80) 95 03/17/19 00:00 98.9 92 19 115/77 (90) 96 03/16/19 21:00 Room Air 03/16/19 20:00 98.5 91 20 149/86 (107) 97 03/16/19 16:50 98.6 85 18 137/78 (97) 97 03/16/19 16:45 97.4 79 16 140/82 100 Nasal Cannula 3 79 03/16/19 16:30 83 15 146/86 100 Nasal Cannula 3 83 03/16/19 16:15 80 18 147/84 100 Nasal Cannula 3 80 03/16/19 16:00 78 14 143/85 100 Nasal Cannula 3 78 03/16/19 15:50 81 19 147/87 100 Nasal Cannula 3 81 03/16/19 15:40 77 15 142/86 100 Simple Mask 6 77 03/16/19 15:32 90 16 97 03/16/19 15:30 97.8 82 16 149/94 100 Simple Mask 6 82 Intake and Output 03/16/19 03/17/19 18:59 06:59 Intake Total 875 ml 540.0 ml Balance 875 ml 540.0 ml Intake Oral 0 ml IV Total 875 ml 540.0 ml # Voids 1 2 Laboratory Tests Test 03/17/19 08:22 White Blood Count 19.2 K/UL (4.8-10.8) H Red Blood Count 2.61 M/UL (4.20-5.40) L Hemoglobin 8.8 G/DL (12.0-16.0) L Hematocrit 27.0 % (37.0-47.0) L Mean Corpuscular Volume 104 FL (80-99) H Mean Corpuscular Hemoglobin 33.7 PG (27.0-31.0) H Mean Corpuscular Hemoglobin Concent 32.5 G/DL (32.0-36.0) Red Cell Distribution Width 11.4 % (11.6-14.8) L Platelet Count 279 K/UL (150-450) Mean Platelet Volume 6.9 FL (6.5-10.1) Neutrophils (%) (Auto) % (45.0-75.0) Lymphocytes (%) (Auto) % (20.0-45.0) Monocytes (%) (Auto) % (1.0-10.0) Eosinophils (%) (Auto) % (0.0-3.0) Basophils (%) (Auto) % (0.0-2.0) Differential Total Cells Counted 100 Neutrophils % (Manual) 88 % (45-75) H Lymphocytes % (Manual) 10 % (20-45) L Monocytes % (Manual) 2 % (1-10) Eosinophils % (Manual) 0 % (0-3) Basophils % (Manual) 0 % (0-2) Band Neutrophils 0 % (0-8) Platelet Estimate Adequate Platelet Morphology Normal Hypochromasia 2+ Anisocytosis 1+ Macrocytosis 1+ Spherocytes 1+ Sodium Level 139 MMOL/L (136-145) Potassium Level 4.0 MMOL/L (3.5-5.1) Chloride Level 105 MMOL/L (98-107) Carbon Dioxide Level 25 MMOL/L (21-32) Anion Gap 9 mmol/L (5-15) Blood Urea Nitrogen 11 mg/dL (7-18) Creatinine 1.1 MG/DL (0.55-1.30) Estimat Glomerular Filtration Rate > 60 mL/min (>60) Glucose Level 130 MG/DL (74-106) H Calcium Level 8.4 MG/DL (8.5-10.1) L Height (Feet): 5 Height (Inches): 6.00 Weight (Pounds): 264 General Appearance: WD/WN, no apparent distress, alert Cardiovascular: normal rate Respiratory/Chest: normal breath sounds, no respiratory distress Abdominal Exam: normal bowel sounds, non tender, soft Extremities: normal range of motion, non-tender Nilsa Santos NP Mar 17, 2019 13:06
[2019-03-17] MEDS ORDERED: TRIAMCINOLONE A15 G2 TP (13:25)
[2019-03-17] MEDS ORDERED: ONE-DAILY MULT1 EACH PO (13:25)
[2019-03-17] MEDS ORDERED: PRINIVIL10 MG ORAL (13:26)
[2019-03-17 16:00] VITALS: BP 100/59
--- NOTE | 2019-03-17 19:03 | NUR ---
HAND-OFF: Report given to Jagdeep RN, pt instable condition. - incoming nurse is aware the OB sample still needs to be collected.
--- NOTE | 2019-03-17 19:30 | NUR ---
NURSE NOTES: Pt. received sitting in bed, AAOx4, no signs of pain at this time, on room air and no shortness of breath indicated. Surgical sites are clean, dry, and intact. Bed is in the low and locked position, side rails are up, call light is in reach, and daughter is at the bedside. Discussed pending stool collection and patient acknowledged.
--- NOTE | 2019-03-17 19:37 | Surgery Progress Note ---
Surgery Progress Note Subjective Procedure Performed lap appy lysis of adhesions Additional Comments clinically improved wbc elevated reactive no n/v/f/c tolerating diet ambulatory Objective Last 24 Hour Vital Signs Date Time Temp Pulse Resp B/P (MAP) Pulse Ox O2 Delivery O2 Flow Rate FiO2 03/17/19 17:33 99.5 03/17/19 16:00 99.5 94 19 100/59 (73) 96 03/17/19 12:28 83 18 96 03/17/19 12:00 98.6 81 18 109/61 (77) 96 03/17/19 09:00 Room Air 03/17/19 08:00 99.4 83 18 102/62 (75) 96 03/17/19 04:00 97.3 83 20 110/65 (80) 95 03/17/19 00:00 98.9 92 19 115/77 (90) 96 03/16/19 21:00 Room Air 03/16/19 20:00 98.5 91 20 149/86 (107) 97 I&O Intake and Output 03/16/19 03/17/19 19:00 07:00 Intake Total 875 ml 540.0 ml Balance 875 ml 540.0 ml Intake Oral 0 ml IV Total 875 ml 540.0 ml # Voids 1 2 Wound: clean, dry Cardiovascular: RSR Respiratory: clear Abdomen: soft, flat, non-tender, present bowel sounds, non-distended Extremities: no edema, no tenderness, no cyanosis Laboratory Tests Test 03/17/19 08:22 White Blood Count 19.2 K/UL (4.8-10.8) H Red Blood Count 2.61 M/UL (4.20-5.40) L Hemoglobin 8.8 G/DL (12.0-16.0) L Hematocrit 27.0 % (37.0-47.0) L Mean Corpuscular Volume 104 FL (80-99) H Mean Corpuscular Hemoglobin 33.7 PG (27.0-31.0) H Mean Corpuscular Hemoglobin Concent 32.5 G/DL (32.0-36.0) Red Cell Distribution Width 11.4 % (11.6-14.8) L Platelet Count 279 K/UL (150-450) Mean Platelet Volume 6.9 FL (6.5-10.1) Neutrophils (%) (Auto) % (45.0-75.0) Lymphocytes (%) (Auto) % (20.0-45.0) Monocytes (%) (Auto) % (1.0-10.0) Eosinophils (%) (Auto) % (0.0-3.0) Basophils (%) (Auto) % (0.0-2.0) Differential Total Cells Counted 100 Neutrophils % (Manual) 88 % (45-75) H Lymphocytes % (Manual) 10 % (20-45) L Monocytes % (Manual) 2 % (1-10) Eosinophils % (Manual) 0 % (0-3) Basophils % (Manual) 0 % (0-2) Band Neutrophils 0 % (0-8) Platelet Estimate Adequate Platelet Morphology Normal Hypochromasia 2+ Anisocytosis 1+ Macrocytosis 1+ Spherocytes 1+ Sodium Level 139 MMOL/L (136-145) Potassium Level 4.0 MMOL/L (3.5-5.1) Chloride Level 105 MMOL/L (98-107) Carbon Dioxide Level 25 MMOL/L (21-32) Anion Gap 9 mmol/L (5-15) Blood Urea Nitrogen 11 mg/dL (7-18) Creatinine 1.1 MG/DL (0.55-1.30) Estimat Glomerular Filtration Rate > 60 mL/min (>60) Glucose Level 130 MG/DL (74-106) H Calcium Level 8.4 MG/DL (8.5-10.1) L Assessment Post-op Diagnosis acute perforated appendicitis dense adhesions from prior surgery Plan Problems: (1) Appendicitis Assessment & Plan: 53F acute appendicitis leukocytosis HD stable exam with focal RLQ tenderness, rebound, guarding CT consistent with acute appy Findings: The appendix is enlarged, measuring up to 16 mm in diameter, and there is fairly extensive surrounding periappendiceal fat stranding/inflammation. There are also enlarged adjacent lymph nodes. No discrete extraluminal gas or fluid. No evidence of colonic diverticulosis or diverticulitis. The distal esophagus, stomach, duodenum are unremarkable. A small amount of free fluid is seen in the pelvis The gallbladder is distended. No definite gallstones. The common bile duct is mildly dilated, measuring up to 8 mm in diameter. No focal liver lesions. The pancreas, spleen, adrenals, right kidney are unremarkable. Left kidney demonstrates subcentimeter low-attenuation lesions which are too small to characterize. The uterus and ovaries are unremarkable. No pelvic mass or adenopathy. The included lung bases are clear. The bones demonstrate mild degenerative spondylosis changes. Impression: Evidence of acute appendicitis Small amount of free pelvic fluid, likely related to the above Mildly dilated common bile duct, without evidence of downstream obstructive lesion. Correlate with liver function tests, consider MRCP to better characterize if clinically indicated Subcentimeter low-attenuation left renal lesions, too small to characterize, most likely benign simple cyst. No further follow-up necessary Degenerative spondylosis changes incidentally noted surgery indicated and recommended cont with abx given OR findings once wbc trending down, afebrile, improved can d/c on oral abx discussed with pcp and ID thank you Jaylen Godwin Mar 17, 2019 19:37
--- NOTE | 2019-03-17 19:50 | NUR ---
NURSE NOTES: Pt is in bed, awake and alert. No acute distress noted. Pt is ambulatory. Vitals stable. Pt has her daughter in the room with her. Pt is not complaining of any pain now. Bed locked low in position,side rails up and call light within reach. Pt will be monitored. Trainee Ulices [place] RN will be assisting in the care of this patient.
[2019-03-17 20:00] VITALS: BP 114/60
--- NOTE | 2019-03-17 20:48 | General Progress Note ---
Assessment/Plan Problem List: (1) Appendicitis ICD Codes: K37 - Unspecified appendicitis SNOMED: 88890520 Qualifiers: Qualified Codes: K35.80 - Unspecified acute appendicitis (2) Hypertension ICD Codes: I10 - Essential (primary) hypertension SNOMED: 13756038 Status: progressing Assessment/Plan: s/p repair of perforated appencisitis abx per id not ready for dc afebrile Subjective ROS Limited/Unobtainable: Yes Allergies: Coded Allergies: No Known Allergies (Unverified , 04/07/16) Objective Last 24 Hour Vital Signs Date Time Temp Pulse Resp B/P (MAP) Pulse Ox O2 Delivery O2 Flow Rate FiO2 03/17/19 17:33 99.5 03/17/19 16:00 99.5 94 19 100/59 (73) 96 03/17/19 12:28 83 18 96 03/17/19 12:00 98.6 81 18 109/61 (77) 96 03/17/19 09:00 Room Air 03/17/19 08:00 99.4 83 18 102/62 (75) 96 03/17/19 04:00 97.3 83 20 110/65 (80) 95 03/17/19 00:00 98.9 92 19 115/77 (90) 96 03/16/19 21:00 Room Air Intake and Output 03/16/19 03/17/19 19:00 07:00 Intake Total 875 ml 540.0 ml Balance 875 ml 540.0 ml Intake Oral 0 ml IV Total 875 ml 540.0 ml # Voids 1 2 Laboratory Tests 03/17/19 08:22: White Blood Count 19.2H, Red Blood Count 2.61L, Hemoglobin 8.8L, Hematocrit 27.0L, Mean Corpuscular Volume 104H, Mean Corpuscular Hemoglobin 33.7H, Mean Corpuscular Hemoglobin Concent 32.5, Red Cell Distribution Width 11.4L, Platelet Count 279, Mean Platelet Volume 6.9, Neutrophils (%) (Auto) , Lymphocytes (%) (Auto) , Monocytes (%) (Auto) , Eosinophils (%) (Auto) , Basophils (%) (Auto) , Differential Total Cells Counted 100, Neutrophils % ( Manual) 88H, Lymphocytes % (Manual) 10L, Monocytes % (Manual) 2, Eosinophils % ( Manual) 0, Basophils % (Manual) 0, Band Neutrophils 0, Platelet Estimate Adequate, Platelet Morphology Normal, Hypochromasia 2+, Anisocytosis 1+, Macrocytosis 1+, Spherocytes 1+, Sodium Level 139, Potassium Level 4.0, Chloride Level 105, Carbon Dioxide Level 25, Anion Gap 9, Blood Urea Nitrogen 11 , Creatinine 1.1, Estimat Glomerular Filtration Rate > 60, Glucose Level 130H, Calcium Level 8.4L Height (Feet): 5 Height (Inches): 6.00 Weight (Pounds): 264 Cardiovascular: normal rate Respiratory/Chest: lungs clear Shmuel Niño MD Mar 17, 2019 20:48
[2019-03-18] VITALS: BP 118/69
--- NOTE | 2019-03-18 00:30 | NUR ---
NURSE NOTES: Pt. out of bed ambulating the unit accompanied with nurse. Pt. wearing non-slip socks, walking with steady gait and no assistive devices used. Educated on importance of activity to promote blood flow and prevent constipation. No complaints of pain at this time, patient returned to room and back in bed. Bed in the low and locked position, side rails are up, and call light is in reach.
[2019-03-18 04:00] VITALS: BP 128/79
[2019-03-18] MEDS: Piperacillin/Tazobactam 3.375 GM in NS 110 ML IVPB SCH ×3 (06:28→22:39)
--- NOTE | 2019-03-18 06:42 | Hematology/Onc Progress Note ---
Assessment/Plan Assessment/Plan Assessment/Plan # Anemia of chronic disease - due to underlying chronic medical issues, multifactorial v Gi bleed, also in this case likely hemodilutional s/p surgery/ choly --> Anemia workup has been ordered and has been reviewed , cw acd --> No evidence of hemolysis is noted, peripheral smear has been reviewed. --> Hgb goal >7. Transfuse prn. --> Epogen or iron at this time is not particularly indicated --> Medications have been reviewed --> low threshold for gi evaluation in case has occult + --> bone marrow biopsy is not indicated given the other more likely causes --> hgb 9-->8.8 # Leukocytosis on admission is likely reactive to sx --> likely relarted to underlying appendicitis --> id abx and surg eval --> wbc trend 14-->19 # Appendicitis, acute onset --> exam cw this and CT consistent with acute appy --> 03/16 s/p lap choly per appe --> mary Godwin # Subcentimeter low-attenuation left renal lesions, too small to characterize, most likely benign simple cyst. No further follow-up necessary # Degenerative spondylosis changes incidentally noted # Dvt ppx lovenox once surgery completed MARY Rn in am and appreciate consultation Subjective Constitutional: Denies: no symptoms, chills, fever, malaise, weakness, other HEENT: Denies: no symptoms, eye pain, blurred vision, tearing, double vision, ear pain, ear discharge, nose pain, nose congestion, throat pain, throat swelling, mouth pain, mouth swelling, other Cardiovascular: Denies: no symptoms, chest pain, edema, irregular heart rate, lightheadedness, palpitations, syncope, other Respiratory: Denies: no symptoms, cough, shortness of breath, SOB with excertion, SOB at rest, sputum, wheezing, other Gastrointestinal/Abdominal: Denies: no symptoms, abdomen distended, abdominal pain, black stools, tarry stools, blood in stool, constipated, diarrhea, difficulty swallowing, nausea, poor appetite, poor fluid intake, rectal bleeding , vomiting, other Genitourinary: Denies: no symptoms, burning, discharge, frequency, flank pain, hematuria, incontinence, pain, urgency, other Neurologic/Psychiatric: Denies: no symptoms, anxiety, depressed, emotional problems, headache, numbness, paresthesia, pre-existing deficit, seizure, tingling, tremors, weakness, other Allergies: Coded Allergies: No Known Allergies (Unverified , 04/07/16) Subjective 03/17: dw Tato, is s/p lap choly, no bleeding, site cdi, with gas, hgb 8.8 03/18: recovering from per appedn, labs noted, bc stable, no new labs in am Objective Objective Current Medications Medications (Trade) Dose Ordered Sig/Bernice Route PRN Reason Start Time Stop Time Status Last Admin Dose Admin Acetaminophen (Tylenol) 650 mg Q4H PRN ORAL Mild Pain/Temp > 100.5 03/16/19 05:30 04/15/19 05:29 03/17/19 17:03 Acetaminophen (Tylenol) 650 mg Q6H PRN ORAL Mild Pain (Pain Scale 1-3) 03/16/19 15:45 04/15/19 15:44 Morphine Sulfate (Morphine Sulfate) 2 mg Q4H PRN IVP pain scale 4-6 03/16/19 15:45 03/23/19 15:44 Morphine Sulfate (Morphine Sulfate) 4 mg Q4H PRN IVP pain score 7-10 03/16/19 15:45 03/23/19 15:44 Piperacillin Sod/ Tazobactam Sod 3.375 gm/Sodium Chloride 110 ml @ 27.5 mls/hr EVERY 8 HOURS IVPB 03/16/19 14:00 03/21/19 13:59 03/18/19 06:28 Sodium Chloride 1,000 ml @ 75 mls/hr [id number] IV 03/16/19 05:30 04/15/19 05:29 03/17/19 20:40 Last 24 Hour Vital Signs Date Time Temp Pulse Resp B/P (MAP) Pulse Ox O2 Delivery O2 Flow Rate FiO2 03/18/19 00:00 98.1 76 14 118/69 (85) 96 03/17/19 21:00 Room Air 03/17/19 20:00 98.1 79 16 114/60 (78) 98 03/17/19 17:33 99.5 03/17/19 16:00 99.5 94 19 100/59 (73) 96 03/17/19 12:28 83 18 96 03/17/19 12:00 98.6 81 18 109/61 (77) 96 03/17/19 09:00 Room Air 03/17/19 08:00 99.4 83 18 102/62 (75) 96 03/17/19 04:00 97.3 83 20 110/65 (80) 95 03/17/19 00:00 98.9 92 19 115/77 (90) 96 03/16/19 21:00 Room Air 03/16/19 20:00 98.5 91 20 149/86 (107) 97 03/16/19 16:50 98.6 85 18 137/78 (97) 97 03/16/19 16:45 97.4 79 16 140/82 100 Nasal Cannula 3 79 03/16/19 16:30 83 15 146/86 100 Nasal Cannula 3 83 03/16/19 16:15 80 18 147/84 100 Nasal Cannula 3 80 03/16/19 16:00 78 14 143/85 100 Nasal Cannula 3 78 03/16/19 15:50 81 19 147/87 100 Nasal Cannula 3 81 03/16/19 15:40 77 15 142/86 100 Simple Mask 6 77 03/16/19 15:32 90 16 97 03/16/19 15:30 97.8 82 16 149/94 100 Simple Mask 6 82 03/16/19 12:00 99.6 72 19 125/79 (94) 97 03/16/19 12:00 97.4 03/16/19 09:00 Room Air 03/16/19 08:00 98.9 74 17 122/74 (90) 97 Intake and Output 03/17/19 03/18/19 19:00 07:00 Intake Total 800 ml 260.0 ml Balance 800 ml 260.0 ml Intake Oral 800 ml IV Total 260.0 ml Labs Test 03/16/19 00:50 03/17/19 08:22 White Blood Count 14.2 K/UL (4.8-10.8) 19.2 K/UL (4.8-10.8) Red Blood Count 3.00 M/UL (4.20-5.40) 2.61 M/UL (4.20-5.40) Hemoglobin 10.3 G/DL (12.0-16.0) 8.8 G/DL (12.0-16.0) Hematocrit 29.0 % (37.0-47.0) 27.0 % (37.0-47.0) Mean Corpuscular Volume 97 FL (80-99) 104 FL (80-99) Mean Corpuscular Hemoglobin 34.4 PG (27.0-31.0) 33.7 PG (27.0-31.0) Mean Corpuscular Hemoglobin Concent 35.5 G/DL (32.0-36.0) 32.5 G/DL (32.0-36.0) Red Cell Distribution Width 10.3 % (11.6-14.8) 11.4 % (11.6-14.8) Platelet Count 289 K/UL (150-450) 279 K/UL (150-450) Mean Platelet Volume 6.1 FL (6.5-10.1) 6.9 FL (6.5-10.1) Neutrophils (%) (Auto) 64.9 % (45.0-75.0) % (45.0-75.0) Lymphocytes (%) (Auto) 26.6 % (20.0-45.0) % (20.0-45.0) Monocytes (%) (Auto) 7.7 % (1.0-10.0) % (1.0-10.0) Eosinophils (%) (Auto) 0.3 % (0.0-3.0) % (0.0-3.0) Basophils (%) (Auto) 0.5 % (0.0-2.0) % (0.0-2.0) Prothrombin Time 10.1 SEC (9.30-11.50) Prothromb Time International Ratio 0.9 (0.9-1.1) Activated Partial Thromboplast Time 30 SEC (23-33) Urine Color Yellow Urine Appearance Clear Urine pH 6.5 (4.5-8.0) Urine Specific [place] 1.015 (1.005-1.035) Urine Protein 1+ (NEGATIVE) Urine Glucose (UA) Negative (NEGATIVE) Urine Ketones Negative (NEGATIVE) Urine Blood Negative (NEGATIVE) Urine Nitrite Negative (NEGATIVE) Urine Bilirubin Negative (NEGATIVE) Urine Urobilinogen Normal MG/DL (0.0-1.0) Urine Leukocyte Esterase 1+ (NEGATIVE) Urine RBC 0-2 /HPF (0 - 2) Urine WBC 0-2 /HPF (0 - 2) Urine Squamous Epithelial Cells Few /LPF (NONE/OCC) Urine Bacteria None /HPF (NONE) Sodium Level 140 MMOL/L (136-145) 139 MMOL/L (136-145) Potassium Level 4.0 MMOL/L (3.5-5.1) 4.0 MMOL/L (3.5-5.1) Chloride Level 106 MMOL/L (98-107) 105 MMOL/L (98-107) Carbon Dioxide Level 27 MMOL/L (21-32) 25 MMOL/L (21-32) Anion Gap 7 mmol/L (5-15) 9 mmol/L (5-15) Blood Urea Nitrogen 9 mg/dL (7-18) 11 mg/dL (7-18) Creatinine 1.1 MG/DL (0.55-1.30) 1.1 MG/DL (0.55-1.30) Estimat Glomerular Filtration Rate > 60 mL/min (>60) > 60 mL/min (>60) Glucose Level 112 MG/DL (74-106) 130 MG/DL (74-106) Calcium Level 8.9 MG/DL (8.5-10.1) 8.4 MG/DL (8.5-10.1) Iron Level 16 ug/dL (50-175) Total Iron Binding Capacity 207 ug/dL (250-450) Percent Iron Saturation 8 % (15-50) Unsaturated Iron Binding 191 ug/dL (112-346) Ferritin 249 NG/ML (8-388) Total Bilirubin 0.6 MG/DL (0.2-1.0) Aspartate Amino Transf (AST/SGOT) 17 U/L (15-37) Alanine Aminotransferase (ALT/SGPT) 24 U/L (12-78) Alkaline Phosphatase 72 U/L (46-116) Total Protein 7.7 G/DL (6.4-8.2) Albumin 3.2 G/DL (3.4-5.0) Globulin 4.5 g/dL Albumin/Globulin Ratio 0.7 (1.0-2.7) Vitamin B12 Level 273 PG/ML (193-986) Folate 23.5 NG/ML (8.6-58.9) Thyroid Stimulating Hormone (TSH) 2.199 uiU/mL (0.358-3.740) Differential Total Cells Counted 100 Neutrophils % (Manual) 88 % (45-75) Lymphocytes % (Manual) 10 % (20-45) Monocytes % (Manual) 2 % (1-10) Eosinophils % (Manual) 0 % (0-3) Basophils % (Manual) 0 % (0-2) Band Neutrophils 0 % (0-8) Platelet Estimate Adequate Platelet Morphology Normal Hypochromasia 2+ Anisocytosis 1+ Macrocytosis 1+ Spherocytes 1+ Height (Feet): 5 Height (Inches): 6.00 Weight (Pounds): 264 Objective PE: Vitals: reviewed General Appearance: NAD HEENT: normocephalic, atraumatic Neck: non-tender, normal alignment Respiratory/Chest: normal breath sounds bilaterally Cardiovascular/Chest: normal peripheral pulses, normal rate Abdomen: normal bowel sounds, site c/d/i ruq Extremities: normal range of motion Andre Leon MD Mar 18, 2019 06:42
--- NOTE | 2019-03-18 07:25 | NUR ---
HAND-OFF: Report given to FAYE Martinez.
--- NOTE | 2019-03-18 07:38 | General Progress Note ---
Assessment/Plan Status: progressing Assessment/Plan: Assessment/Plan Problems: (1) Appendicitis ICD Codes: K37 - Unspecified appendicitis SNOMED: [id number] Assessment/Plan - Acute appendicitis - Anemia - Obesity - s/p laparoscopic appendectomy Recommendations - Diet per surgery>>>on reg diet - Zofran PRN as needed for nausea vomiting - Pain management - PPI - outpatient EGD/Colon once recovered from surgery Subjective Allergies: Coded Allergies: No Known Allergies (Unverified , 04/07/16) Objective Last 24 Hour Vital Signs Date Time Temp Pulse Resp B/P (MAP) Pulse Ox O2 Delivery O2 Flow Rate FiO2 03/18/19 04:00 97.7 75 16 128/79 (95) 98 03/18/19 00:00 98.1 76 14 118/69 (85) 96 03/17/19 21:00 Room Air 03/17/19 20:00 98.1 79 16 114/60 (78) 98 03/17/19 17:33 99.5 03/17/19 16:00 99.5 94 19 100/59 (73) 96 03/17/19 12:28 83 18 96 03/17/19 12:00 98.6 81 18 109/61 (77) 96 03/17/19 09:00 Room Air 03/17/19 08:00 99.4 83 18 102/62 (75) 96 Intake and Output 03/17/19 03/18/19 19:00 07:00 Intake Total 800 ml 635.0 ml Balance 800 ml 635.0 ml Intake Oral 800 ml 150 ml IV Total 485.0 ml # Voids 2 Laboratory Tests 03/17/19 08:22: White Blood Count 19.2H, Red Blood Count 2.61L, Hemoglobin 8.8L, Hematocrit 27.0L, Mean Corpuscular Volume 104H, Mean Corpuscular Hemoglobin 33.7H, Mean Corpuscular Hemoglobin Concent 32.5, Red Cell Distribution Width 11.4L, Platelet Count 279, Mean Platelet Volume 6.9, Neutrophils (%) (Auto) , Lymphocytes (%) (Auto) , Monocytes (%) (Auto) , Eosinophils (%) (Auto) , Basophils (%) (Auto) , Differential Total Cells Counted 100, Neutrophils % ( Manual) 88H, Lymphocytes % (Manual) 10L, Monocytes % (Manual) 2, Eosinophils % ( Manual) 0, Basophils % (Manual) 0, Band Neutrophils 0, Platelet Estimate Adequate, Platelet Morphology Normal, Hypochromasia 2+, Anisocytosis 1+, Macrocytosis 1+, Spherocytes 1+, Sodium Level 139, Potassium Level 4.0, Chloride Level 105, Carbon Dioxide Level 25, Anion Gap 9, Blood Urea Nitrogen 11 , Creatinine 1.1, Estimat Glomerular Filtration Rate > 60, Glucose Level 130H, Calcium Level 8.4L 03/18/19 04:50: Stool Occult Blood [Pending] 03/18/19 05:45: White Blood Count [Pending], Red Blood Count [Pending], Hemoglobin [Pending], Hematocrit [Pending], Mean Corpuscular Volume [Pending], Mean Corpuscular Hemoglobin [Pending], Mean Corpuscular Hemoglobin Concent [Pending], Red Cell Distribution Width [Pending], Platelet Count [Pending], Mean Platelet Volume [ Pending], Neutrophils (%) (Auto) [Pending], Lymphocytes (%) (Auto) [Pending], Monocytes (%) (Auto) [Pending], Eosinophils (%) (Auto) [Pending], Basophils (%) (Auto) [Pending], Sodium Level [Pending], Potassium Level [Pending], Chloride Level [Pending], Carbon Dioxide Level [Pending], Blood Urea Nitrogen [Pending], Creatinine [Pending], Estimat Glomerular Filtration Rate [Pending], Glucose Level [Pending], Calcium Level [Pending] Height (Feet): 5 Height (Inches): 6.00 Weight (Pounds): 264 General Appearance: alert EENT: normal ENT inspection Neck: supple Cardiovascular: normal rate Respiratory/Chest: lungs clear Abdomen: hypoactive bowel sounds, tender Extremities: non-tender Davin Zacarias MD Mar 18, 2019 07:38
--- NOTE | 2019-03-18 07:40 | NUR ---
NURSE NOTES: Received report from FAYE Gannon and FAYE Elena. Patient A&Ox4. On room air, no signs of distress or labored breathing. In bed, eating breakfast. IV intact, patent, and infusing IV fluids. Bed in lowest position with call light in reach. Will continue with plan of care.
[2019-03-18 07:47] LABS: BASOPHILS % (AUTO) 0.7 % (0.0-2.0); EOSINOPHILS % (AUTO) 0.1 % (0.0-3.0); HEMATOCRIT 26.2 % (37.0-47.0); HEMOGLOBIN 8.6 G/DL (12.0-16.0); LYMPHOCYTES % (AUTO) 26.5 % (20.0-45.0); MEAN CORPUSCULAR VOLUME 104 FL (80-99); MONOCYTES % (AUTO) 5.5 % (1.0-10.0); NEUTROPHILS % (AUTO) 67.3 % (45.0-75.0); PLATELET COUNT 261 K/UL (150-450); RED BLOOD COUNT 2.51 M/UL (4.20-5.40); RED CELL DISTRIBUTION WIDTH 11.6 % (11.6-14.8); WHITE BLOOD COUNT 14.4 K/UL (4.8-10.8)
[2019-03-18 08:00] VITALS: BP 117/74
[2019-03-18 08:04] LABS: ANION GAP 8 mmol/L (5-15); BLOOD UREA NITROGEN 11 mg/dL (7-18); CALCIUM 8.5 MG/DL (8.5-10.1); CARBON DIOXIDE 24 MMOL/L (21-32); CHLORIDE 108 MMOL/L (98-107); POTASSIUM 4.1 MMOL/L (3.5-5.1); SODIUM 140 MMOL/L (136-145)
[2019-03-18 12:00] VITALS: BP 124/76
--- NOTE | 2019-03-18 14:39 | NUR ---
*-* INSURANCE *-* ALL AVAILABLE CLINICALS HAVE BEEN FAXED TO: [facility]:[place] P: [phone] F: [phone] REF# [id number] Addendum: 03/18/19 at 1446 by NEELAM STYLES CM REF# [id number]
--- NOTE | 2019-03-18 14:54 | Surgery Progress Note ---
Surgery Progress Note Subjective Procedure Performed lap appy lysis of adhesions Symptoms: improved, tolerating diet, voiding well, passing flatus, BM Additional Comments wbc 14 Objective Last 24 Hour Vital Signs Date Time Temp Pulse Resp B/P (MAP) Pulse Ox O2 Delivery O2 Flow Rate FiO2 03/18/19 04:00 97.7 75 16 128/79 (95) 98 03/18/19 00:00 98.1 76 14 118/69 (85) 96 03/17/19 21:00 Room Air 03/17/19 20:00 98.1 79 16 114/60 (78) 98 03/17/19 17:33 99.5 03/17/19 16:00 99.5 94 19 100/59 (73) 96 I&O Intake and Output 03/17/19 03/18/19 18:59 06:59 Intake Total 800 ml 635.0 ml Balance 800 ml 635.0 ml Intake Oral 800 ml 150 ml IV Total 485.0 ml # Voids 2 Dressing: dry Wound: clean Cardiovascular: RSR Respiratory: clear Abdomen: soft, flat, non-tender, present bowel sounds Extremities: no edema, no tenderness, no cyanosis Laboratory Tests Test 03/18/19 04:50 03/18/19 05:45 Stool Occult Blood Negative (NEGATIVE) White Blood Count 14.4 K/UL (4.8-10.8) H Red Blood Count 2.51 M/UL (4.20-5.40) L Hemoglobin 8.6 G/DL (12.0-16.0) L Hematocrit 26.2 % (37.0-47.0) L Mean Corpuscular Volume 104 FL (80-99) H Mean Corpuscular Hemoglobin 34.1 PG (27.0-31.0) H Mean Corpuscular Hemoglobin Concent 32.8 G/DL (32.0-36.0) Red Cell Distribution Width 11.6 % (11.6-14.8) Platelet Count 261 K/UL (150-450) Mean Platelet Volume 6.6 FL (6.5-10.1) Neutrophils (%) (Auto) 67.3 % (45.0-75.0) Lymphocytes (%) (Auto) 26.5 % (20.0-45.0) Monocytes (%) (Auto) 5.5 % (1.0-10.0) Eosinophils (%) (Auto) 0.1 % (0.0-3.0) Basophils (%) (Auto) 0.7 % (0.0-2.0) Sodium Level 140 MMOL/L (136-145) Potassium Level 4.1 MMOL/L (3.5-5.1) Chloride Level 108 MMOL/L (98-107) H Carbon Dioxide Level 24 MMOL/L (21-32) Anion Gap 8 mmol/L (5-15) Blood Urea Nitrogen 11 mg/dL (7-18) Creatinine 1.0 MG/DL (0.55-1.30) Estimat Glomerular Filtration Rate > 60 mL/min (>60) Glucose Level 92 MG/DL (74-106) Calcium Level 8.5 MG/DL (8.5-10.1) Assessment Post-op Diagnosis acute perforated appendicitis dense adhesions from prior surgery Plan Problems: (1) Appendicitis Assessment & Plan: 53F acute appendicitis leukocytosis HD stable exam with focal RLQ tenderness, rebound, guarding CT consistent with acute appy Findings: The appendix is enlarged, measuring up to 16 mm in diameter, and there is fairly extensive surrounding periappendiceal fat stranding/inflammation. There are also enlarged adjacent lymph nodes. No discrete extraluminal gas or fluid. No evidence of colonic diverticulosis or diverticulitis. The distal esophagus, stomach, duodenum are unremarkable. A small amount of free fluid is seen in the pelvis The gallbladder is distended. No definite gallstones. The common bile duct is mildly dilated, measuring up to 8 mm in diameter. No focal liver lesions. The pancreas, spleen, adrenals, right kidney are unremarkable. Left kidney demonstrates subcentimeter low-attenuation lesions which are too small to characterize. The uterus and ovaries are unremarkable. No pelvic mass or adenopathy. The included lung bases are clear. The bones demonstrate mild degenerative spondylosis changes. Impression: Evidence of acute appendicitis Small amount of free pelvic fluid, likely related to the above Mildly dilated common bile duct, without evidence of downstream obstructive lesion. Correlate with liver function tests, consider MRCP to better characterize if clinically indicated Subcentimeter low-attenuation left renal lesions, too small to characterize, most likely benign simple cyst. No further follow-up necessary Degenerative spondylosis changes incidentally noted surgery indicated and recommended cont with abx given OR findings once wbc trending down, afebrile, improved can d/c on oral abx discussed with pcp and ID thank you Jaylen Godwin Mar 18, 2019 14:54
[2019-03-18 16:00] VITALS: BP 140/80
--- NOTE | 2019-03-18 16:27 | Infectious Diseases Prog Note ---
Assessment/Plan Assessment/Plan A: Acute appendicitis with perforation s/p laparoscopic appendectomy Obesity Anemia P; Continue Zosyn in hospital in case of discharge PO Levaquin & Flagyl X 4 days Subjective ROS Limited/Unobtainable: No Constitutional: Reports: no symptoms Respiratory: Reports: productive cough Cardiovascular: Reports: no symptoms Gastrointestinal/Abdominal: Reports: no symptoms, other - tolerating diet, had bowel movement Genitourinary: Reports: no symptoms Musculoskeletal: Reports: no symptoms Allergies: Coded Allergies: No Known Allergies (Unverified , 04/07/16) Objective Vital Signs Last 24 Hour Vital Signs Date Time Temp Pulse Resp B/P (MAP) Pulse Ox O2 Delivery O2 Flow Rate FiO2 03/18/19 04:00 97.7 75 16 128/79 (95) 98 03/18/19 00:00 98.1 76 14 118/69 (85) 96 03/17/19 21:00 Room Air 03/17/19 20:00 98.1 79 16 114/60 (78) 98 03/17/19 17:33 99.5 Height (Feet): 5 Height (Inches): 6.00 Weight (Pounds): 264 General Appearance: no acute distress HEENT: mucous membranes moist Respiratory/Chest: lungs clear Cardiovascular: normal rate Abdomen: soft, non tender Extremities: no edema Neurologic/Psychiatric: alert, oriented x 3, responsive Microbiology Date/Time Source Procedure Growth Status 03/16/19 00:50 Nasal Nares - Final Complete 03/16/19 00:50 Nasal Nares - Final Complete Laboratory Tests Test 03/18/19 04:50 03/18/19 05:45 Stool Occult Blood Negative (NEGATIVE) White Blood Count 14.4 K/UL (4.8-10.8) H Red Blood Count 2.51 M/UL (4.20-5.40) L Hemoglobin 8.6 G/DL (12.0-16.0) L Hematocrit 26.2 % (37.0-47.0) L Mean Corpuscular Volume 104 FL (80-99) H Mean Corpuscular Hemoglobin 34.1 PG (27.0-31.0) H Mean Corpuscular Hemoglobin Concent 32.8 G/DL (32.0-36.0) Red Cell Distribution Width 11.6 % (11.6-14.8) Platelet Count 261 K/UL (150-450) Mean Platelet Volume 6.6 FL (6.5-10.1) Neutrophils (%) (Auto) 67.3 % (45.0-75.0) Lymphocytes (%) (Auto) 26.5 % (20.0-45.0) Monocytes (%) (Auto) 5.5 % (1.0-10.0) Eosinophils (%) (Auto) 0.1 % (0.0-3.0) Basophils (%) (Auto) 0.7 % (0.0-2.0) Sodium Level 140 MMOL/L (136-145) Potassium Level 4.1 MMOL/L (3.5-5.1) Chloride Level 108 MMOL/L (98-107) H Carbon Dioxide Level 24 MMOL/L (21-32) Anion Gap 8 mmol/L (5-15) Blood Urea Nitrogen 11 mg/dL (7-18) Creatinine 1.0 MG/DL (0.55-1.30) Estimat Glomerular Filtration Rate > 60 mL/min (>60) Glucose Level 92 MG/DL (74-106) Calcium Level 8.5 MG/DL (8.5-10.1) Current Medications Medications (Trade) Dose Ordered Sig/Bernice Route PRN Reason Start Time Stop Time Status Last Admin Dose Admin Acetaminophen (Tylenol) 650 mg Q4H PRN ORAL Mild Pain/Temp > 100.5 03/16/19 05:30 04/15/19 05:29 03/17/19 17:03 Acetaminophen (Tylenol) 650 mg Q6H PRN ORAL Mild Pain (Pain Scale 1-3) 03/16/19 15:45 04/15/19 15:44 Morphine Sulfate (Morphine Sulfate) 2 mg Q4H PRN IVP pain scale 4-6 03/16/19 15:45 03/23/19 15:44 Morphine Sulfate (Morphine Sulfate) 4 mg Q4H PRN IVP pain score 7-10 03/16/19 15:45 03/23/19 15:44 Piperacillin Sod/ Tazobactam Sod 3.375 gm/Sodium Chloride 110 ml @ 27.5 mls/hr EVERY 8 HOURS IVPB 03/16/19 14:00 03/21/19 13:59 03/18/19 15:32 Sodium Chloride 1,000 ml @ 75 mls/hr [id number] IV 03/16/19 05:30 04/15/19 05:29 03/17/19 20:40 Reji Nuñez MD Mar 18, 2019 16:27
[2019-03-18] MEDS: Morphine Sulfate 4mg/ml Inj (IV USE ONLY) IVP PRN ×2 (18:41→22:42)
--- NOTE | 2019-03-18 19:27 | NUR ---
HAND-OFF: Report given to Nataly Kate RN.
--- NOTE | 2019-03-18 19:56 | NUR ---
Nurses Notes Received report from Michelle RN. Pt awake alert oriented x4. able to make needs known. Pt on RA no acute distress noted lying in bed accompanied by daughter. IV too Right hand running NS@ 75ml/hr patent intact. Pt bed in lowest position call light in reach. Pt instructed to call if assistance need be nurse make round. Pt verbalized understanding. will continue to monitor patients condition and provide treatment and care during shift
[2019-03-18 20:00] VITALS: BP 131/73
--- NOTE | 2019-03-18 21:44 | General Progress Note ---
Assessment/Plan Problem List: (1) Appendicitis ICD Codes: K37 - Unspecified appendicitis SNOMED: 16712403 Qualifiers: Qualified Codes: K35.80 - Unspecified acute appendicitis (2) Hypertension ICD Codes: I10 - Essential (primary) hypertension SNOMED: 02048825 Status: progressing Assessment/Plan: s/p repair of perforated appencitis diet advancment per surgeon afebrile abd pain is getting better abx per id Subjective ROS Limited/Unobtainable: Yes Allergies: Coded Allergies: No Known Allergies (Unverified , 04/07/16) Objective Last 24 Hour Vital Signs Date Time Temp Pulse Resp B/P (MAP) Pulse Ox O2 Delivery O2 Flow Rate FiO2 03/18/19 16:00 98.7 72 20 140/80 (100) 99 03/18/19 12:00 98.9 82 20 124/76 (92) 100 03/18/19 09:00 Room Air 03/18/19 08:00 99.7 81 19 117/74 (88) 98 03/18/19 04:00 97.7 75 16 128/79 (95) 98 03/18/19 00:00 98.1 76 14 118/69 (85) 96 Intake and Output 03/17/19 03/18/19 19:00 07:00 Intake Total 800 ml 635.0 ml Balance 800 ml 635.0 ml Intake Oral 800 ml 150 ml IV Total 485.0 ml # Voids 2 Laboratory Tests 03/18/19 04:50: Stool Occult Blood Negative 03/18/19 05:45: White Blood Count 14.4H, Red Blood Count 2.51L, Hemoglobin 8.6L, Hematocrit 26.2L, Mean Corpuscular Volume 104H, Mean Corpuscular Hemoglobin 34.1H, Mean Corpuscular Hemoglobin Concent 32.8, Red Cell Distribution Width 11.6, Platelet Count 261, Mean Platelet Volume 6.6, Neutrophils (%) (Auto) 67.3, Lymphocytes (% ) (Auto) 26.5, Monocytes (%) (Auto) 5.5, Eosinophils (%) (Auto) 0.1, Basophils ( %) (Auto) 0.7, Sodium Level 140, Potassium Level 4.1, Chloride Level 108H, Carbon Dioxide Level 24, Anion Gap 8, Blood Urea Nitrogen 11, Creatinine 1.0, Estimat Glomerular Filtration Rate > 60, Glucose Level 92, Calcium Level 8.5 Height (Feet): 5 Height (Inches): 6.00 Weight (Pounds): 264 Respiratory/Chest: lungs clear Abdomen: tender Shmuel Niño MD Mar 18, 2019 21:44
[2019-03-19] VITALS: BP 135/70
[2019-03-19] MEDS: Morphine Sulfate 4mg/ml Inj (IV USE ONLY) IVP PRN (03:46)
[2019-03-19 04:00] VITALS: BP 125/76
[2019-03-19] MEDS: Piperacillin/Tazobactam 3.375 GM in NS 110 ML IVPB SCH ×2 (06:23→14:49)
--- NOTE | 2019-03-19 06:51 | General Progress Note ---
Assessment/Plan Status: progressing Assessment/Plan: Assessment/Plan Problems: (1) Appendicitis ICD Codes: K37 - Unspecified appendicitis SNOMED: 33078893 Assessment/Plan - Acute appendicitis - Anemia - Obesity - s/p laparoscopic appendectomy Recommendations - Diet per surgery>>>on reg diet - Zofran PRN as needed for nausea vomiting - Pain management - PPI - outpatient EGD/Colon once recovered from surgery Subjective Allergies: Coded Allergies: No Known Allergies (Unverified , 04/07/16) Objective Last 24 Hour Vital Signs Date Time Temp Pulse Resp B/P (MAP) Pulse Ox O2 Delivery O2 Flow Rate FiO2 03/19/19 04:00 98.2 83 16 125/76 (92) 96 03/19/19 00:00 99.0 90 19 135/70 (91) 97 03/18/19 21:00 Room Air 03/18/19 20:00 99.1 93 19 131/73 (92) 96 03/18/19 16:00 98.7 72 20 140/80 (100) 99 03/18/19 12:00 98.9 82 20 124/76 (92) 100 03/18/19 09:00 Room Air 03/18/19 08:00 99.7 81 19 117/74 (88) 98 Intake and Output 03/18/19 03/19/19 19:00 07:00 Intake Total 840 ml 800 ml Balance 840 ml 800 ml Intake Oral 840 ml 600 ml IV Total 200 ml # Voids 3 6 Height (Feet): 5 Height (Inches): 6.00 Weight (Pounds): 264 General Appearance: alert Respiratory/Chest: decreased breath sounds Abdomen: soft, hypoactive bowel sounds Extremities: non-tender Davin Zacarias MD Mar 19, 2019 06:51
[2019-03-19 07:14] LABS: BASOPHILS % (AUTO) 1.3 % (0.0-2.0); EOSINOPHILS % (AUTO) 0.5 % (0.0-3.0); HEMOGLOBIN 8.7 G/DL (12.0-16.0); LYMPHOCYTES % (AUTO) 32.8 % (20.0-45.0); MEAN CORPUSCULAR VOLUME 103 FL (80-99); MONOCYTES % (AUTO) 5.9 % (1.0-10.0); NEUTROPHILS % (AUTO) 59.5 % (45.0-75.0); PLATELET COUNT 312 K/UL (150-450); RED BLOOD COUNT 2.63 M/UL (4.20-5.40); RED CELL DISTRIBUTION WIDTH 11.8 % (11.6-14.8); WHITE BLOOD COUNT 10.8 K/UL (4.8-10.8)
[2019-03-19 07:16] LABS: ANION GAP 11 mmol/L (5-15); BLOOD UREA NITROGEN 7 mg/dL (7-18); CALCIUM 8.5 MG/DL (8.5-10.1); CARBON DIOXIDE 27 MMOL/L (21-32); CHLORIDE 104 MMOL/L (98-107); CREATININE 0.9 MG/DL (0.55-1.30); POTASSIUM 3.7 MMOL/L (3.5-5.1); SODIUM 142 MMOL/L (136-145)
--- NOTE | 2019-03-19 07:39 | NUR ---
NURSE NOTES: Received report from FAYE Ingram. Patient A&Ox4. On room air, no signs of distress or labored breathing. IV intact, patent and running IV antibiotics. Patient reporting reduced pain. Bed in lowest position with call light in reach. Will continue with plan of care.
[2019-03-19 08:00] VITALS: BP 134/75
[2019-03-19 12:00] VITALS: BP 150/72
[2019-03-19] MEDS ORDERED: Tubing IV Secondary IV ONE ×2 (13:36→17:17)
--- NOTE | 2019-03-19 14:13 | NUR ---
CHARGE NURSE NOTE: pt is ready for discharge (according to ). notified about H@H8.7/27.0. Dr. Leon is on the case. possible d/c tomorrow.
--- NOTE | 2019-03-19 14:31 | Surgery Progress Note ---
Surgery Progress Note Subjective Procedure Performed lap appy lysis of adhesions Symptoms: improved, tolerating diet, passing flatus, BM Additional Comments states feels better but had some pain last night no n/v/f/c labs improved wbc resolved wants to go home tomorrow morning Objective Last 24 Hour Vital Signs Date Time Temp Pulse Resp B/P (MAP) Pulse Ox O2 Delivery O2 Flow Rate FiO2 03/19/19 09:00 Room Air 03/19/19 08:00 98.2 88 18 134/75 (94) 95 03/19/19 04:00 98.2 83 16 125/76 (92) 96 03/19/19 00:00 99.0 90 19 135/70 (91) 97 03/18/19 21:00 Room Air 03/18/19 20:00 99.1 93 19 131/73 (92) 96 03/18/19 16:00 98.7 72 20 140/80 (100) 99 I&O Intake and Output 03/18/19 03/19/19 19:00 07:00 Intake Total 840 ml 800 ml Balance 840 ml 800 ml Intake Oral 840 ml 600 ml IV Total 200 ml # Voids 3 6 Dressing: dry Wound: clean Cardiovascular: RSR Respiratory: clear Abdomen: soft, flat, non-tender, present bowel sounds Extremities: no edema, no tenderness, no cyanosis Laboratory Tests Test 03/19/19 06:10 White Blood Count 10.8 K/UL (4.8-10.8) Red Blood Count 2.63 M/UL (4.20-5.40) L Hemoglobin 8.7 G/DL (12.0-16.0) L Hematocrit 27.0 % (37.0-47.0) L Mean Corpuscular Volume 103 FL (80-99) H Mean Corpuscular Hemoglobin 33.0 PG (27.0-31.0) H Mean Corpuscular Hemoglobin Concent 32.1 G/DL (32.0-36.0) Red Cell Distribution Width 11.8 % (11.6-14.8) Platelet Count 312 K/UL (150-450) Mean Platelet Volume 6.9 FL (6.5-10.1) Neutrophils (%) (Auto) 59.5 % (45.0-75.0) Lymphocytes (%) (Auto) 32.8 % (20.0-45.0) Monocytes (%) (Auto) 5.9 % (1.0-10.0) Eosinophils (%) (Auto) 0.5 % (0.0-3.0) Basophils (%) (Auto) 1.3 % (0.0-2.0) Sodium Level 142 MMOL/L (136-145) Potassium Level 3.7 MMOL/L (3.5-5.1) Chloride Level 104 MMOL/L (98-107) Carbon Dioxide Level 27 MMOL/L (21-32) Anion Gap 11 mmol/L (5-15) Blood Urea Nitrogen 7 mg/dL (7-18) Creatinine 0.9 MG/DL (0.55-1.30) Estimat Glomerular Filtration Rate > 60 mL/min (>60) Glucose Level 101 MG/DL (74-106) Calcium Level 8.5 MG/DL (8.5-10.1) Assessment Post-op Diagnosis acute perforated appendicitis dense adhesions from prior surgery Plan Problems: (1) Appendicitis Assessment & Plan: 53F acute appendicitis leukocytosis HD stable exam with focal RLQ tenderness, rebound, guarding CT consistent with acute appy Findings: The appendix is enlarged, measuring up to 16 mm in diameter, and there is fairly extensive surrounding periappendiceal fat stranding/inflammation. There are also enlarged adjacent lymph nodes. No discrete extraluminal gas or fluid. No evidence of colonic diverticulosis or diverticulitis. The distal esophagus, stomach, duodenum are unremarkable. A small amount of free fluid is seen in the pelvis The gallbladder is distended. No definite gallstones. The common bile duct is mildly dilated, measuring up to 8 mm in diameter. No focal liver lesions. The pancreas, spleen, adrenals, right kidney are unremarkable. Left kidney demonstrates subcentimeter low-attenuation lesions which are too small to characterize. The uterus and ovaries are unremarkable. No pelvic mass or adenopathy. The included lung bases are clear. The bones demonstrate mild degenerative spondylosis changes. Impression: Evidence of acute appendicitis Small amount of free pelvic fluid, likely related to the above Mildly dilated common bile duct, without evidence of downstream obstructive lesion. Correlate with liver function tests, consider MRCP to better characterize if clinically indicated Subcentimeter low-attenuation left renal lesions, too small to characterize, most likely benign simple cyst. No further follow-up necessary Degenerative spondylosis changes incidentally noted surgery indicated and recommended cont with abx given OR findings once wbc trending down, afebrile, improved can d/c on oral abx discussed with pcp and ID thank you Jaylen Godwin Mar 19, 2019 14:31
--- NOTE | 2019-03-19 14:42 | Infectious Diseases Prog Note ---
Assessment/Plan Assessment/Plan A: Acute appendicitis with perforation s/p laparoscopic appendectomy Obesity Anemia P; Continue Zosyn in hospital in case of discharge PO Levaquin & Flagyl X 3 days Subjective ROS Limited/Unobtainable: No HEENT: Reports: no symptoms Respiratory: Reports: no symptoms Cardiovascular: Reports: no symptoms Gastrointestinal/Abdominal: Reports: no symptoms Genitourinary: Reports: no symptoms Allergies: Coded Allergies: No Known Allergies (Unverified , 04/07/16) Objective Vital Signs Last 24 Hour Vital Signs Date Time Temp Pulse Resp B/P (MAP) Pulse Ox O2 Delivery O2 Flow Rate FiO2 03/19/19 09:00 Room Air 03/19/19 08:00 98.2 88 18 134/75 (94) 95 03/19/19 04:00 98.2 83 16 125/76 (92) 96 03/19/19 00:00 99.0 90 19 135/70 (91) 97 03/18/19 21:00 Room Air 03/18/19 20:00 99.1 93 19 131/73 (92) 96 03/18/19 16:00 98.7 72 20 140/80 (100) 99 Height (Feet): 5 Height (Inches): 6.00 Weight (Pounds): 264 General Appearance: no acute distress HEENT: mucous membranes moist Respiratory/Chest: lungs clear Cardiovascular: normal rate Abdomen: soft, non tender Extremities: no edema Neurologic/Psychiatric: alert, oriented x 3, responsive Laboratory Tests Test 03/19/19 06:10 White Blood Count 10.8 K/UL (4.8-10.8) Red Blood Count 2.63 M/UL (4.20-5.40) L Hemoglobin 8.7 G/DL (12.0-16.0) L Hematocrit 27.0 % (37.0-47.0) L Mean Corpuscular Volume 103 FL (80-99) H Mean Corpuscular Hemoglobin 33.0 PG (27.0-31.0) H Mean Corpuscular Hemoglobin Concent 32.1 G/DL (32.0-36.0) Red Cell Distribution Width 11.8 % (11.6-14.8) Platelet Count 312 K/UL (150-450) Mean Platelet Volume 6.9 FL (6.5-10.1) Neutrophils (%) (Auto) 59.5 % (45.0-75.0) Lymphocytes (%) (Auto) 32.8 % (20.0-45.0) Monocytes (%) (Auto) 5.9 % (1.0-10.0) Eosinophils (%) (Auto) 0.5 % (0.0-3.0) Basophils (%) (Auto) 1.3 % (0.0-2.0) Sodium Level 142 MMOL/L (136-145) Potassium Level 3.7 MMOL/L (3.5-5.1) Chloride Level 104 MMOL/L (98-107) Carbon Dioxide Level 27 MMOL/L (21-32) Anion Gap 11 mmol/L (5-15) Blood Urea Nitrogen 7 mg/dL (7-18) Creatinine 0.9 MG/DL (0.55-1.30) Estimat Glomerular Filtration Rate > 60 mL/min (>60) Glucose Level 101 MG/DL (74-106) Calcium Level 8.5 MG/DL (8.5-10.1) Current Medications Medications (Trade) Dose Ordered Sig/Bernice Route PRN Reason Start Time Stop Time Status Last Admin Dose Admin Acetaminophen (Tylenol) 650 mg Q4H PRN ORAL Mild Pain/Temp > 100.5 03/16/19 05:30 04/15/19 05:29 03/17/19 17:03 Acetaminophen (Tylenol) 650 mg Q6H PRN ORAL Mild Pain (Pain Scale 1-3) 03/16/19 15:45 04/15/19 15:44 Morphine Sulfate (Morphine Sulfate) 2 mg Q4H PRN IVP pain scale 4-6 03/16/19 15:45 03/23/19 15:44 Morphine Sulfate (Morphine Sulfate) 4 mg Q4H PRN IVP pain score 7-10 03/16/19 15:45 03/23/19 15:44 03/19/19 03:46 Piperacillin Sod/ Tazobactam Sod 3.375 gm/Sodium Chloride 110 ml @ 27.5 mls/hr EVERY 8 HOURS IVPB 03/16/19 14:00 03/21/19 13:59 03/19/19 06:23 Sodium Chloride 1,000 ml @ 75 mls/hr [id number] IV 03/16/19 05:30 04/15/19 05:29 03/18/19 22:38 Reji Nuñez MD Mar 19, 2019 14:42
[2019-03-19] MEDS ORDERED: LEVAQUIN500 MG ORAL (15:33)
[2019-03-19] MEDS ORDERED: FLAGYL500 MG ORAL (15:34)
[2019-03-19] MEDS ORDERED: COLACE100 MG ORAL (15:34)
[2019-03-19] MEDS ORDERED: ACETAMINOPHEN-1 EAC1 ORAL (15:35)
[2019-03-19 16:00] VITALS: BP 134/78
--- NOTE | 2019-03-19 16:30 | NUR ---
NURSE NOTES: Dr. Cuevas cleared patient for discharge. Charge nurse aware.
--- NOTE | 2019-03-19 17:00 | NUR ---
NURSE NOTES: Patient discharge home via private car with family. Discharge protocol followed. IV d/c'd, ID band removed.
--- NOTE | 2019-03-19 20:45 | Discharge Summary ---
Discharge Summary Discharge Summary _ DATE OF ADMISSION: 03/16/2019 DATE OF DISCHARGE: 03/19/2019 DISCHARGED BY: Dr Niño REASON FOR ADMISSION: 53 years old female with past medical history of hypertension, presented to emergency room complaining of abdominal pain. Pain reported as dull , nonradiating ,8 out of 10. No chest pain or shortness of breath . Patient also reported nausea and vomiting and reduced appetite. Upon evaluation patient was afebrile. Laboratory work-up revealed leukocytosis WBC 14.2 ,hemoglobin 10.3, hematocrit 29. Urinalysis revealed no evidence of UTI. Stable electrolytes and renal parameters. Glucose 112. Stable LFT. CT scan of abdomen and pelvis revealed evidence of acute appendicitis. Surgeon consulted . Patient started on empiric antibiotic and admitted for further management CONSULTANTS: ID specialist Dr. Nuñez GI specialist Dr. Yanes mortgage coordinator/oncologist Dr. Leon surgery [facility] COURSE: Patient admitted to medical surgical floor. Patient was kept n.p.o. , on IV fluids and empiric antibiotics. Surgeon seen and evaluated patient and recommended surgery. Patient consented to surgery. Patient subsequently undergone on 03/16 laparoscopic appendectomy with extensive laparoscopic lysis of adhesion and abdominal washout. Patient tolerated surgery well . Postoperatively pain management was addressed as needed. Patient slowly started on diet as tolerated. Antiemetics were on board as needed. Patient was mobilized. DVT prophylaxis provided. Incentive spirometry encouraged while in the bed. Antibiotics provided as per ID specialist recommendation. Patient received Zosyn while in the hospital and switched to Levaquin and Flagyl to complete the course for additional 3 days. Leukocytosis resolved. Hemoglobin and hematocrit were closely monitored with goal to keep hemoglobin above 7. Stool for occult blood was negative. Anemia work-up revealed evidence of anemia of chronic disease. Peripheral blood smear revealed no evidence of hemolysis. Epogen or iron at this time were not particularly indicated. Prior to discharge hemoglobin 8.7 ,hematocrit 27. GI specialist recommended outpatient GI procedure. Supportive care provided. Patient clinically stabilized and was ready for discharge home FINAL DIAGNOSES: Acute perforated appendicitis Status post laparoscopic appendectomy Anemia Obesity DISCHARGE MEDICATIONS: See Medication Reconciliation list. DISCHARGE INSTRUCTIONS: Patient was discharged home. Follow-up with a surgeon in the office as outpatient. I have been assigned to dictate discharge summary for this account. I was not involved in the patient's management. Susan Grant NP Mar 19, 2019 20:45
== END 2019-03-19 17:18 | disposition home or self-care (01) | DRG 224 ==
LOC: EMR 01:39 → EDBEDREQ 03:25 → 4E 03:48 → EDBEDREQ 04:03 → 4E 21:31
PROC: 0DNW4ZZ Release Peritoneum, Percutaneous Endoscopic Approach (ICD-10-PCS; 2019-03-16)
PROC: 0DTJ4ZZ Resection of Appendix, Percutaneous Endoscopic Approach (ICD-10-PCS; principal; 2019-03-16 12:30)
DX: K35.32 Acute appendicitis with perforation, localized peritonitis, and gangrene, without abscess (principal); K66.0 Peritoneal adhesions (postprocedural) (postinfection); E66.9 Obesity, unspecified; Z68.41 Body mass index [BMI] 40.0-44.9, adult; I10 Essential (primary) hypertension; K21.9 Gastro-esophageal reflux disease without esophagitis; D63.8 Anemia in other chronic diseases classified elsewhere
CPT/HCPCS: 36415; 74177; 76700; 80048; 80053; 81003; 82270; 82607; 82728; 82746; 83540; 83550; 84443; 85007; 85025; 85610; 85730; 86710; 86850; 86900; 86901; 94003; 94150; 96361; 96365; 96375; 99285; J2405; J2710; J2765; J7030

== ENCOUNTER 2020-05-06 08:28 | Emergency (ER) | payer MEDICAID ==
[~2020-05-06] VITALS: Ht 167.6 cm; Wt 113.4 kg
[~2020-05-06 08:28] MED LIST changes: +ACETAMINOPHEN-1 EAC1 ORAL; +COLACE100 MG ORAL; +FLAGYL500 MG ORAL; +LEVAQUIN500 MG ORAL; +ONE-DAILY MULT1 EACH PO; +PRINIVIL10 MG ORAL; +TRIAMCINOLONE A15 G2 TP
[2020-05-06 09:14] VITALS: BP 106/62
--- NOTE | 2020-05-06 09:22 | Emergency Room Report ---
History of Present Illness General Chief Complaint: General Complaint Source: Patient Present Illness HPI The patient presents with hypertension. She had a headache yesterday. Headache was mild yesterday. It was generalized and did not radiate she filled her prescription and did not take her medicine until late last night. When she woke up this morning her blood pressure was high. This made her feel anxious and her daughter convinced her to come in for evaluation to the emergency department. The patient denies any chest pain, shortness of breath. She denies any prior kidney involvement. She takes her blood pressure in her left forearm. At home it was 150/95. Overall she does not feel stressed but when her blood pressure is up it scared her. Her private physician had told her to take an extra dose of lisinopril. She did this approximately 1-1/2 hours prior to coming to the emergency department. Blood pressure medicine was begun after she had elevated intraocular pressure. She was using drops. When antihypertensives were begun she was able to come off of the eye drops. During the pandemic the patient has gained weight. Patient denies exposure to Covid positive contacts. No fevers, chills, sore throat, palpitations, nausea, vomiting, diarrhea, dysuria, abdominal pain, joint pain, rashes, visual changes, dizziness. 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 Now: No Reviewed Nursing Documentation: PMH: Agreed; PSxH: Agreed Nursing Documentation-PMH Hx Hypertension: Yes Review of Systems All Other Systems: negative except mentioned in HPI Physical Exam Vital Signs Date Time Temp Pulse Resp B/P (MAP) Pulse Ox O2 Delivery O2 Flow Rate FiO2 05/06/20 08:34 98.1 67 18 157/94 (115) 100 Room Air Sp02 EP Interpretation: reviewed, normal General Appearance: well appearing, no apparent distress, GCS 15 Head: normocephalic Eyes: bilateral eye normal inspection, bilateral eye PERRL, bilateral eye EOMI ENT: moist mucus membranes Neck: normal inspection, full range of motion, supple Respiratory: lungs clear, normal breath sounds Cardiovascular #1: regular rate, rhythm, no edema Cardiovascular #2: 2+ radial (R) Gastrointestinal: normal inspection, non tender, no bruit Genitourinary: no CVA tenderness Musculoskeletal: gait/station normal, no calf tenderness Neurologic: alert, oriented x3, grossly normal Psychiatric: mood/affect normal Skin: normal color, no rash, warm/dry Medical Decision Making Diagnostic Impression: Primary Impression: Labile hypertension ER Course Patient presents with a history of having mildly elevated blood pressure and headache yesterday. Differential includes labile hypertension, hypertensive urgency, anxiety amongst others. Her repeat blood pressure is normal at this time. However EKG is indicated. As there is no prior history of renal disease and her blood pressure is well controlled at this time no labs are indicated. Patient has a nonfocal neurologic exam at this time and her headache is completely resolved. EKG normal with PAC. Patient's blood pressure continues to be normal and she is asymptomatic at this time. Discussion with goal of hypertension treatment. Advised patient not to take extra doses of lisinopril. Advised patient to follow-up with her doctor for appropriate antihypertensive treatment. At this time there is no medical emergency and there is no need to change her antihypertensive regimen. Patient stable for outpatient observation and treatment. EKG Diagnostic Results Rate: normal Rhythm: NSR ST Segments: no acute changes Rhythm Strip Diag. Results EP Interpretation: yes Rhythm: NSR, no PVC's, other - pacs Last Vital Signs Date Time Temp Pulse Resp B/P (MAP) Pulse Ox O2 Delivery O2 Flow Rate FiO2 05/06/20 09:38 98.6 72 18 112/62 99 Room Air Status: improved Disposition: HOME, SELF-CARE Condition: Improved Referrals: [facility],REFERRING (PCP) Stevenson Delgadillo MD May 06, 2020 09:22
[2020-05-06 09:38] VITALS: BP 112/62
== END 2020-05-06 09:36 | disposition home or self-care (01) ==
LOC: EMR 08:58
DX: I10 Essential (primary) hypertension (principal)
CPT/HCPCS: 93005; Z7502; 99282